=== PATIENT | female | born 1985 | race Caucasian/White ===

== ENCOUNTER → 2018-11-05 | Outpatient (CLI) | payer OTHER, SELFPAY ==
[2018-11-05 10:13] VITALS: BMI 31.0
[2018-11-11 08:47] LABS: HPV APTIMA, High Risk Negative (Negative)
== END | disposition home or self-care (01) ==
LOC: LABSPEC 12:41
PROVIDERS: Family Provider Family Medicine; PCP Family Medicine; Referring Provider Obstetrics & Gynecology; Visit Provider Obstetrics & Gynecology
DX: Z12.4 Encounter for screening for malignant neoplasm of cervix (principal)
CPT/HCPCS: 87624; 88175; G0145

== ENCOUNTER → 2019-12-21 16:57 | Outpatient (CLI) | payer OTHER, SELFPAY ==
[2019-12-21 11:31] VITALS: BMI 31.0
== END ==
PROVIDERS: PCP Family Medicine; Referring Provider Nurse Practitioner Women's Health; Visit Provider Nurse Practitioner Women's Health
DX: R30.0 Dysuria (principal)
CPT/HCPCS: 87086; 87088

== ENCOUNTER 2021-06-29 19:55 | Outpatient (CLI) | payer BC, SELFPAY ==
[2021-06-29 19:56] LABS: Bacteria 0 SEEN /hpf (None Seen); Mucous, Urine 0 SEEN /hpf (<or=2+); Red Blood Cells-Urine 0 SEEN /hpf (0-5); White Blood Cells 0 SEEN /hpf (0-5)
[2021-06-29 20:00] LABS: Color, Urine Yellow (Yellow); Glucose, Dipstick Normal (Normal); Ketone-Dipstick Negative (Negative); Leukocyte Esterase-Dipstick Negative /ul (Negative); Nitrite-Dipstick Negative (Negative); Occult Blood-Urine Negative /ul (Negative); Protein-Dipstick Negative (Negative); Urine Bilirubin Dipstick Negative (Negative); Urine Clarity Clear (Clear); Urine Urobilinogen Normal (Normal)
[2021-06-29 20:19] LABS: Squamous Epithelial Cells - UA 0-5 SEEN /hpf (5-10)
== END 2021-06-29 23:59 | disposition home or self-care (01) ==
PROVIDERS: PCP Family Medicine; Visit Provider Physician Assistant
DX: R30.9 Painful micturition, unspecified (principal)
CPT/HCPCS: 81001; 87086; 87088

== ENCOUNTER → 2021-12-20 | Outpatient (CLI) | payer BC, SELFPAY ==
[2021-12-20 10:28] LABS: Mucous, Urine 0 SEEN /hpf (<or=2+)
[2021-12-20 10:38] LABS: Color, Urine Yellow (Yellow); Glucose, Dipstick Normal (Normal); Ketone-Dipstick Negative (Negative); Leukocyte Esterase-Dipstick 500 /ul (Negative); Nitrite-Dipstick Positive (Negative); Occult Blood-Urine 250 /ul (Negative); Protein-Dipstick Negative (Negative); Specific Gravity, Urine 1.005 (1.002-1.030); Urine Clarity Sl. Cloudy (Clear); Urine Urobilinogen 4 mg/dl (Normal); Urine pH 6.5 (5.0 - 8.0)
[2021-12-20 10:40] LABS: Urine Bilirubin Dipstick 1 mg/dL (Negative)
[2021-12-20 10:54] LABS: Bacteria 1+ /hpf (None Seen); Red Blood Cells-Urine 25-50 SEEN /hpf (0-5); Squamous Epithelial Cells - UA 0-5 SEEN /hpf (5-10); White Blood Cells 25-50 SEEN /hpf (0-5)
== END | disposition home or self-care (01) ==
LOC: LABSPEC 10:18
PROVIDERS: PCP Family Medicine; Referring Provider Physician Assistant; Visit Provider Physician Assistant
DX: N39.0 Urinary tract infection, site not specified (principal); R30.9 Painful micturition, unspecified
CPT/HCPCS: 81001; 87086; 87088

== ENCOUNTER → 2022-09-19 | Outpatient (CLI) | payer BC, SELFPAY | END | disposition home or self-care (01) | LOC: LABSPEC 11:09 | PROVIDERS: PCP Family Medicine; Referring Provider Physician Assistant Surgical; Visit Provider Physician Assistant Surgical | DX: R39.15 Urgency of urination (principal) | CPT/HCPCS: 87086 ==

== ENCOUNTER → 2023-03-18 | Outpatient (CLI) | payer BC, SELFPAY ==
[2023-03-21 15:08] LABS: HPV APTIMA, High Risk Negative (Negative)
== END | disposition home or self-care (01) ==
LOC: LABSPEC 16:38
PROVIDERS: Referring Provider Obstetrics & Gynecology; Visit Provider Obstetrics & Gynecology
DX: Z12.4 Encounter for screening for malignant neoplasm of cervix (principal)
CPT/HCPCS: 87624; 88175; G0145

== ENCOUNTER → 2023-09-05 | Outpatient (CLI) | payer BC, SELFPAY | END | disposition home or self-care (01) | LOC: LABSPEC 12:36 | PROVIDERS: Referring Provider Physician Assistant Surgical; Visit Provider Physician Assistant Surgical | DX: N39.0 Urinary tract infection, site not specified (principal) | CPT/HCPCS: 87077; 87086; 87088; 87186 ==

== ENCOUNTER → 2024-05-06 | Outpatient (CLI) | payer BC, SELFPAY ==
[2024-05-06 10:23] LABS: Vitamin D,25 Hydroxy 38.2 ng/mL
[2024-05-06 11:34] LABS: Cholesterol 189 mg/dL (200); Glucose 84 mg/dL (74-106); High Density Lipoprotein 78 mg/dL; Triglycerides 52 mg/dL; Very Low Density Lipoprotein 10 mg/dL (5-40)
== END | disposition home or self-care (01) ==
LOC: LAB 08:26
PROVIDERS: PCP Family Medicine; Referring Provider Obstetrics & Gynecology; Visit Provider Obstetrics & Gynecology
DX: Z13.21 Encounter for screening for nutritional disorder (principal); Z13.220 Encounter for screening for lipoid disorders; Z13.1 Encounter for screening for diabetes mellitus; Z13.29 Encounter for screening for other suspected endocrine disorder
CPT/HCPCS: 36415; 80061; 82306; 82947; 84443

== ENCOUNTER → 2024-12-04 | Outpatient (CLI) | payer BC, SELFPAY ==
--- NOTE | 2024-12-04 11:36 | RAD_ITS ---
PROCEDURE: ANKLE MIN 3 VIEWS 12/04/2024 REASON FOR EXAM: RIGHT ANKLE EDEMA TECHNIQUE: Procedure Code: RADANK Modality: DX Procedure: ANKLE MIN 3 VIEWS Laterality: Right ankle COMPARISON: None FINDINGS: Bones: No fracture seen. Joints: Normal alignment. Mortise appears intact. No effusion. Soft tissues: Soft tissue swelling. Other: RAD/Ankle min 3 Views IMPRESSION: Soft tissue swelling. No fracture seen. Reading Location: [place] [id number]
== END | disposition home or self-care (01) ==
LOC: MTRAD 11:36
PROVIDERS: PCP Family Medicine; Referring Provider Nurse Practitioner Gerontology; Visit Provider Nurse Practitioner Gerontology
DX: M25.471 Effusion, right ankle (principal)
CPT/HCPCS: 73610

== ENCOUNTER → 2025-01-18 | Outpatient (CLI) | payer BC, SELFPAY ==
--- OUTSIDE RECORDS SUMMARY | 2025-01-18 07:45 | XMS RPT_ITS | CCD ---
Author Organization [facility] CliniSysd Care Team Providers Care Ophthalmic Tech Name Role Phone THIAGO FLACO L Unavailable Unavailable THIAGO, FLACO L Unavailable Unavailable ISAAK CARTER Unavailable Unavail able FARHAT SANON Unavailable Unavailable THIAGO, FLACO L Unavailable Unavailable THIAGO, FLACO L Unavailable Unavailable THIAGO, FLACO L Unavailable Unavailable THIAGO, FLACO L Unavailable Unavailable THIAGO FLACO L Unavailable Unavailable Dr. Sammie Guy Primary Care Provider Dr. Sammie Guy Referring Provider [phone] MICHAEL Burdick Attending Provider [phone] MICHAEL Monique Attending Provider [phone] Dr. Sammie Guy Primary Care Provider [phone] Dr. Sammie Guy Referring Provider [phone] MICHAEL Monique Attending Provider Dr. Sammie Guy Primary Care Provider [phone] Dr. Sammie Guy Referring Provider [phone] MICHAEL Burdick Attending Provider [phone] Dr. Sammie Guy Referring Provider Dr. Maryjo Leigh Attending Provider [phone] Sammie Guy Primary Care Unavailable Delmy Torres NP Attending Unavailable Delmy Torres NP Referring Unavailable Maryjo Leigh Referring Unavailabl e Sammie Guy Primary Care Unavailable Maryjo Leigh Attending Unavailabl e Assessment, Health Risk Attending Unavaila ble Assessment, Health Risk Referring Unavaila ble Brooks, Sammie Primary Care Unavailable Maryjo Leigh Attending Unavailabl e Dr. Sammie Guy DO Primary Care Physician Delmy Dallas Attending Physician [phone] Delmy Dallas Referring Provider [phone] Medications Current Medications Medication Drug Class(es) Dates Sig (Normalized) Sig (Original) [place] (Nk) (2 sources) Start: 04-06-2024 [place] (Nk) A ctive April 06, 2024 1:00am Start: 03-18-2023 [place] (Nk) A ctive March 18, 2023 12:00am Completed/Discontinued Medications Medication Drug Class(es) Dates Sig (Normalized) Sig (Original) ciprofloxacin 500 mg oral tablet (9 sources) Quinolone Antimicrobial Start: 06-29-2021 End: 02-13-2022 take 1 tablet by mouth twice daily Ciprofloxacin Hcl 500 mg tablet Discontinued 500 mg PO TWICE A DAY 14 0 December 20, 2021 8:36am February 13, 2022 9:07am ibuprofen 600 mg oral tablet (5 sources) Nonsteroidal Anti-inflammatory Drug Start: 11-15-2016 End: 11-05-2018 take 1 tablet by mouth every six hours as needed for pain Ibuprofen 600 MG tablet Discontinued 600 mg PO EVERY 6 HOURS as needed for Pain 60 1 November 15, 2016 12:00am November 05, 2018 9:47am nitrofurantoin, macrocrystals 25 mg / nitrofurantoin, monohydrate 75 mg oral capsule (15 sources) Nitrofuran Antibacterial Start: 09-05-2023 End: 09-12-2023 take 1 capsule by mouth every twelve hours at mealtime Nitrofurantoin Monohyd/M-Cryst 100 mg capsule Discontinued 1 NMA PO Q12H 14 7 0 September 05, 2023 12:00am September 11, 2023 12:00am September 12, 2023 12:06am administer with a meal/food; swallow whole; do not open, crush, dissolve , or chew Start: 09-19-2022 End: 09-26-2022 take 1 capsule by mouth every twelve hours at mealtime Nitrofurantoin Monohyd/M-Cryst 100 mg capsule Discontinued 1 NMA PO Q12H 14 7 0 September 19, 2022 12:00am September 25, 2022 12:00am September 26, 2022 12:03am administer with a meal/food; swallow whole; do not open, crush, dissolve , or chew Start: 05-01-2021 End: 05-08-2021 take 1 capsule by mouth every twelve hours at mealtime Nitrofurantoin Monohyd/M-Cryst 100 mg capsule Discontinued 1 NMA PO Q12H 14 7 0 May 01, 2021 1:00am May 07, 2021 1:00am May 08, 2021 1:02am administer with a meal/food; swallow whole; do not open, crush, dissolve , or chew Start: 12-21-2019 End: 12-28-2019 take 1 capsule by mouth twice daily at mealtime Nitrofurantoin Monohyd/M-Cryst (Macrobid) 100 mg capsule Discontinued 100 mg PO TWICE A DAY 14 7 0 December 21, 2019 12:00am December 27, 2019 12:00am December 28, 2019 12:02am must administer with a meal/food phenazopyridine hydrochloride 100 mg oral tablet (3 sources) Start: 09-19-2022 End: 03-18-2023 take 1 tablet by mouth three times daily at mealtime for pain Phenazopyridine (Pyridium) 100 mg tablet Discontinued 100 mg PO THREE TIMES A DAY as needed for pain 7 0 September 19, 2022 12:00am March 18, 2023 9:32am administer with a full glass of water after each meal Vit,Jimy 83-Mdve-Mnkxt 1 TABLET tablet (1 source) Start: 06-21-2013 End: 11-05-2018 Vit,Jimy 46-Zhcr-Zxsff 1 TABLET tablet Discontinued 1 {tbl} PO DAILY June 21, 2013 12:00am November 05, 2018 9:47am Vit,Xvlq79-Oyqs-Fsazn (4 sources) Start: 06-21-2013 End: 11-05-2018 take 1 tablet by mouth once daily Vit,Bjlu45-Zvxa-Waqmw Discontinued 1 TABLET PO DAILY June 21, 2013 7:52pm November 05, 2018 9:47am Start: 06-21-2013 End: 11-05-2018 take 1 tablet by mouth once daily Vit,Tumr71-Aeca-Dbvus Discontinued 1 TABLET PO DAILY June 20, 2013 11:00pm November 05, 2018 8:47am Start: 06-21-2013 End: 11-05-2018 take 1 tablet by mouth once daily Vit,Srtf80-Zrfp-Bunmz Discontinued 1 TABLET PO DAILY June 21, 2013 12:00am November 05, 2018 9:47am Problems Active Problems Problem Classification Problem Date Documented Da te Episodic/Chronic Other non-traumatic joint disorders (1 source) Effusion, right ankle; Translations: [Effusion, right ankle] Onset: 12-21-2024 Episodic Other non-traumatic joint disorders (1 source) Ankle edema; Translations: [Effusion, right ankle] 12-03-2024 Episodic Unclassified (1 source) 36 weeks gestation of ; Translations: [36 weeks gestation of ] Onset: 10-19-2016 Unclassified (1 source) Unknown / UNK(Unknown) Onset: 10-03-2016 Urinary tract infections (19 sources) Urinary tract infectious disease; Translations: [Urinary tract infection, site not specified] Episodic Past or Other Problems Problem Classification Problem Date Documented Da te Episodic/Chronic Normal and/or delivery (1 source) Encounter for supervision of other normal , third trimester; Translations: [Encounter for supervision of other normal , third trimester] Onset: 10-19-2016 Episodic Other screening for suspected conditions (not mental disorders or infectious disease) (4 sources) Encounter for screening for nutritional disorder; Translations: [Encounter for screening for lipoid disorders] Onset: 04-06-2024 Episodic Results Test Name Value Interpretation Reference Range Facility Ankle min 3 Viewson 12-05-19 Ankle min 3 Views [facility] [address] [place] [address] Ankle min 3 Views MR#: [id number] Acct: [id number] Name: SERA KATHLEEN Rep #: [id number] : 1985 F 39 From: Jeramy boyer MD PCP: Dr. Sammie Guy, Status: REG CLI Study: Ankle min 3 Views Date of Exam: 12/04/24 Exam# [id number] Ordering Dr: Delmy Torres AUDIOVISUAL LEAD TECHNICIAN AUDIOVISUAL LEAD TECHNICIAN- C PROCEDURE: ANKLE MIN 3 VIEWS 12/04/2024 REASON FOR EXAM: RIGHT ANKLE EDEMA TECHNIQUE: Procedure Code: RADANK Modality: DX Procedure: ANKLE MIN 3 VIEWS Laterality: Right ankle COMPARISON: None FINDINGS: Bones: No fracture seen. Joints: Normal alignment. Mortise appears intact. No effusion. Soft tissues: Soft tissue swelling. Other: RAD/Ankle min 3 Views IMPRESSION: Soft tissue swelling. No fracture seen. Reading Location: [place] [address] CC: SUSAN Torres; Dr. Sammie Guy DO Lay Out Worker: Signed Normal [facility], Employeeon 05-06-2024 Absolute Lymph 1.58 X10 3/uL Normal 0.83-4.51 [facility] Comment on above: Performed By: #### L 400.0100, L500.2900, L100.0200 #### [facility] [address] [place], [address] Absolute Neut 2.6 X10 3/uL Normal 2.0-7.7 [facility] Comment on above: Performed By: #### L 400.0100, L500.2900, L100.0200 #### [facility] [address] [place], [address] Basophils/100 WBC (Bld) 0.7 % Normal 0-1 [facility] Comment on above: Performed By: #### L 400.0100, L500.2900, L100.0200 #### [facility] [address] [place], [address] Eosinophils/100 WBC (Bld) 0.7 % Normal 0-5 [facility] Comment on above: Performed By: #### L 400.0100, L500.2900, L100.0200 #### [facility] [address] [place], [address] Erythrocyte distribution width (RBC) [Ratio] 12.9 % Normal 11.6-14.6 [facility] Comment on above: Performed By: #### L 400.0100, L500.2900, L100.0200 #### [facility] [address] [place], [address] Hematocrit (Bld) [Volume fraction] 43.4 % Normal 37-47 [facility] Comment on above: Performed By: #### L 400.0100, L500.2900, L100.0200 #### [facility] [address] [place], [address] Hemoglobin (Bld) [Mass/Vol] 14.4 g/dL Normal 12.0-15.0 [facility] Comment on above: Performed By: #### L 400.0100, L500.2900, L100.0200 #### [facility] [address] [place], [address] Lymphocytes/100 WBC (Bld) 35.0 % Normal 19-41 [facility] Comment on above: Performed By: #### L 400.0100, L500.2900, L100.0200 #### [facility] [address] [place], [address] MCH (RBC) [Entitic mass] 30.1 pg Normal 27.0-32.0 [facility] Comment on above: Performed By: #### L 400.0100, L500.2900, L100.0200 #### [facility] [address] [place], [address] MCHC (RBC) [Mass/Vol] 33.2 g/dL Normal 32-36 [facility] Comment on above: Performed By: #### L 400.0100, L500.2900, L100.0200 #### [facility] [address] [place], [address] MCV (RBC) [Entitic vol] 90.6 fL Normal 81-99 [facility] Comment on above: Performed By: #### L 400.0100, L500.2900, L100.0200 #### [facility] [address] [place], [address] Monocytes/100 WBC (Bld) 7.1 % Normal 0-10 [facility] Comment on above: Performed By: #### L 400.0100, L500.2900, L100.0200 #### [facility] [address] [place], [address] Neutrophils/100 WBC (Bld) 56.5 % Normal 47-70 [facility] Comment on above: Performed By: #### L 400.0100, L500.2900, L100.0200 #### [facility] [address] [place], [address] NRBC # 0.00 10 3/uL Normal 0-5 [facility] Comment on above: Performed By: #### L 400.0100, L500.2900, L100.0200 #### [facility] [address] [place], [address] Nucleated RBC (Bld) [#/Vol] 0 10*3/uL Normal 0-5 [facility] Comment on above: Performed By: #### L 400.0100, L500.2900, L100.0200 #### [facility] [address] [place], [address] Platelet mean volume (Bld) [Entitic vol] 10.4 fL Normal 6.2-12.0 [facility] Comment on above: Performed By: #### L 400.0100, L500.2900, L100.0200 #### [facility] [address] [place], [address] Platelets (Bld) [#/Vol] 188 10*3/uL Normal 150-450 [facility] Comment on above: Performed By: #### L 400.0100, L500.2900, L100.0200 #### [facility] [address] [place], [address] RBC (Bld) [#/Vol] 4.79 10*6/uL Normal 4.2-5.4 [facility] Comment on above: Performed By: #### L 400.0100, L500.2900, L100.0200 #### [facility] [address] [place], [address] RDW SD 42.3 fl Normal 35.1-43.9 [facility] Comment on above: Performed By: #### L 400.0100, L500.2900, L100.0200 #### [facility] [address] [place], [address] WBC (Bld) [#/Vol] 4.5 10*3/uL Normal 4.4-11.0 [facility] Comment on above: Performed By: #### L 400.0100, L500.2900, L100.0200 #### [facility] [address] [place], [address] Employee Profileon 5 Albumin [Mass/Vol] 3.8 g/dL Normal 3.2-5.0 [facility] Comment on above: Performed By: #### L 400.0100, L500.2900, L100.0200 #### [facility] [address] [place], [address] Albumin/Globulin [Mass ratio] 1.0 {ratio} Normal 0.9-2.4 [facility] Comment on above: Performed By: #### L 400.0100, L500.2900, L100.0200 #### [facility] [address] [place], [address] ALK P 49 U/L Normal 45-117 [facility] Comment on above: Performed By: #### L 400.0100, L500.2900, L100.0200 #### [facility] [address] [place], [address] ALT [Catalytic activity/Vol] 23 U/L Normal 13-56 [facility] Comment on above: Performed By: #### L 400.0100, L500.2900, L100.0200 #### [facility] [address] [place], [address] AST [Catalytic activity/Vol] 13 U/L Low 15-37 [facility] Comment on above: Performed By: #### L 400.0100, L500.2900, L100.0200 #### [facility] [address] [place], [address] Bilirubin [Mass/Vol] 0.50 mg/dL Normal 0.20-1.00 [facility] Comment on above: Result Comment: For patients on eltrombopag therapy, use of Dimension [place] TBIL is not recommended. Performed By: #### L 400.0100, L500.2900, L100.0200 #### [facility] [address] [place], [address] Bilirubin.direct [Mass/Vol] 0.11 mg/dL Normal 0.00-0.30 [facility] Comment on above: Performed By: #### L 400.0100, L500.2900, L100.0200 #### [facility] [address] [place], [address] BUN/CRE 18.7 RATIO Normal 10-20 [facility] Comment on above: Performed By: #### L 400.0100, L500.2900, L100.0200 #### [facility] [address] [place], [address] CA,Total 8.8 mg/dL Normal 8.5-10.1 [facility] Comment on above: Performed By: #### L 400.0100, L500.2900, L100.0200 #### [facility] [address] [place], [address] Chloride [Moles/Vol] 106 mmol/L Normal 98-107 [facility] Comment on above: Performed By: #### L 400.0100, L500.2900, L100.0200 #### [facility] [address] [place], [address] CHOL:HDL 2.40 Normal [facility] Comment on above: Performed By: #### L 400.0100, L500.2900, L100.0200 #### [facility] [address] [place], [address] Cholesterol [Mass/Vol] 188 mg/dL Normal 200 [facility] Comment on above: Result Comment: <200 mg/dL Desirable 200-240 mg/dL Borderline >240 mg/dL High Risk Performed By: #### L 400.0100, L500.2900, L100.0200 #### [facility] [address] [place], [address] Cholesterol in HDL [Mass/Vol] 78 mg/dL Normal [facility] Comment on above: Result Comment: The drugs N-Acetylcysteine and Metamizole may falsely depress this assay. Reference Range HDL <40 mg/dL Low HDL Cholesterol HDL >or= 60 mg/dL High HDL Cholesterol Performed By: #### L 400.0100, L500.2900, L100.0200 #### [facility] [address] [place], [address] Cholesterol in LDL [Mass/Vol] 101 mg/dL Normal 0-130 [facility] Comment on above: Performed By: #### L 400.0100, L500.2900, L100.0200 #### [facility] [address] [place], [address] Cholesterol in VLDL [Mass/Vol] 9 mg/dL Normal 5-40 [facility] Comment on above: Performed By: #### L 400.0100, L500.2900, L100.0200 #### [facility] [address] [place], [address] CO2 [Moles/Vol] 24.0 mmol/L Normal 21.0-32.0 [facility] Comment on above: Performed By: #### L 400.0100, L500.2900, L100.0200 #### [facility] [address] [place], [address] Creatinine [Mass/Vol] 0.86 mg/dL Normal 0.55-1.02 [facility] Comment on above: Result Comment: The validity of the calculated GFR GFRAA in patients over 70 years has not been determined. Clinical correlation is essential. Performed By: #### L 400.0100, L500.2900, L100.0200 #### [facility] [address] [place], [address] EST GFR - AA 95 mL/min Normal >60 [facility] Comment on above: Result Comment: Afri can [place] GFR Calc Performed By: #### L 400.0100, L500.2900, L100.0200 #### [facility] [address] [place], [address] GAP 6 Normal 5-15 [facility] Comment on above: Performed By: #### L 400.0100, L500.2900, L100.0200 #### [facility] [address] [place], [address] GFR/1.73 sq M.predicted among non-blacks MDRD (S/P/Bld) [Vol rate/Area] 79 mL/min/{1.73_m2} Normal >60 [facility] Comment on above: Result Comment: Non- GFR Calc Performed By: #### L 400.0100, L500.2900, L100.0200 #### [facility] [address] [place], [address] Globulin (S) [Mass/Vol] 3.9 g/dL Normal 2.2-4.2 [facility] Comment on above: Performed By: #### L 400.0100, L500.2900, L100.0200 #### [facility] [address] [place], [address] Glucose [Mass/Vol] 87 mg/dL Normal 74-106 [facility] Comment on above: Performed By: #### L 400.0100, L500.2900, L100.0200 #### [facility] [address] [place], [address] LDH 161 U/L Normal 84-246 [facility] Comment on above: Performed By: #### L 400.0100, L500.2900, L100.0200 #### [facility] [address] [place], [address] Phosphate [Mass/Vol] 3.6 mg/dL Normal 2.5-4.9 [facility] Comment on above: Performed By: #### L 400.0100, L500.2900, L100.0200 #### [facility] [address] [place], [address] Potassium [Moles/Vol] 4.3 mmol/L Normal 3.5-5.1 [facility] Comment on above: Performed By: #### L 400.0100, L500.2900, L100.0200 #### [facility] [address] [place], [address] Sodium [Moles/Vol] 136 mmol/L Normal 136-145 [facility] Comment on above: Performed By: #### L 400.0100, L500.2900, L100.0200 #### [facility] [address] [place], [address] T PROT 7.7 g/dL Normal 6.4-8.2 [facility] Comment on above: Performed By: #### L 400.0100, L500.2900, L100.0200 #### [facility] [address] [place], [address] Triglyceride [Mass/Vol] 47 mg/dL Normal [facility] Comment on above: Result Comment: The drugs N-Acetylcysteine and Metamizole may falsely depress this assay. Serum Triglycerides Reference Interval Normal <150 mg/dL Borderline high 150 - 199 mg/dL High 200 - 499 mg/dL Very High > or = 500 mg/dL Performed By: #### L 400.0100, L500.2900, L100.0200 #### [facility] [address] [place], [address] Urea nitrogen [Mass/Vol] 16 mg/dL Normal 7-18 [facility] Comment on above: Performed By: #### L 400.0100, L500.2900, L100.0200 #### [facility] [address] [place], [address] URIC 2.9 mg/dL Normal 2.6-6.0 [facility] Comment on above: Result Comment: The drugs N-Acetylcysteine and Metamizole may falsely depress this assay. Performed By: #### L 400.0100, L500.2900, L100.0200 #### [facility] [address] [place], [address] Glucoseon 05-06-2024 Glucose [Mass/Vol] 84 mg/dL Normal 74-106 [facility] Comment on above: Performed By: #### L 506.1000, L501.0100, L501.9520, L500.4100 #### [facility] [address] [place], [address] Lipid Profileon 05-06-2024 Cholesterol [Mass/Vol] 189 mg/dL Normal 200 [facility] Comment on above: Result Comment: <200 mg/dL Desirable 200-240 mg/dL Borderline >240 mg/dL High Risk Performed By: #### L 506.1000, L501.0100, L501.9520, L500.4100 #### [facility] [address] [place], [address] Cholesterol in HDL [Mass/Vol] 78 mg/dL Normal [facility] Comment on above: Result Comment: The drugs N-Acetylcysteine and Metamizole may falsely depress this assay. Reference Range HDL <40 mg/dL Low HDL Cholesterol HDL >or= 60 mg/dL High HDL Cholesterol Performed By: #### L 506.1000, L501.0100, L501.9520, L500.4100 #### [facility] [address] [place], [address] Cholesterol in LDL [Mass/Vol] 101 mg/dL Normal 0-130 [facility] Comment on above: Performed By: #### L 506.1000, L501.0100, L501.9520, L500.4100 #### [facility] [address] [place], [address] Cholesterol in VLDL [Mass/Vol] 10 mg/dL Normal 5-40 [facility] Comment on above: Performed By: #### L 506.1000, L501.0100, L501.9520, L500.4100 #### [facility] [address] [place], [address] Triglyceride [Mass/Vol] 52 mg/dL Normal [facility] Comment on above: Result Comment: The drugs N-Acetylcysteine and Metamizole may falsely depress this assay. Serum Triglycerides Reference Interval Normal <150 mg/dL Borderline high 150 - 199 mg/dL High 200 - 499 mg/dL Very High > or = 500 mg/dL Performed By: #### L 506.1000, L501.0100, L501.9520, L500.4100 #### [facility] [address] [place], [address] Thyroid Stim Hormone (TSH)on 05-06-2024 TSH 1.870 uIU/mL Normal 0.358-3.740 [facility] Comment on above: Performed By: #### L 506.1000, L501.0100, L501.9520, L500.4100 #### [facility] [address] [place], [address] Urinalysis, Employeeon 05-06 BILIRUBIN URINE Negative Normal Negative [facility] Comment on above: Order Comment: Urine , Random Performed By: #### L 400.0100, L500.2900, L100.0200 #### [facility] [address] [place], [address] Clarity (U) Clear Normal Clear [facility] Comment on above: Order Comment: Urine , Random Performed By: #### L 400.0100, L500.2900, L100.0200 #### [facility] [address] [place], [address] Color (U) Straw Normal Yellow [facility] Comment on above: Order Comment: Urine , Random Performed By: #### L 400.0100, L500.2900, L100.0200 #### [facility] [address] [place], [address] GLUCOSE, UR Normal Normal Normal [facility] Comment on above: Order Comment: Urine , Random Performed By: #### L 400.0100, L500.2900, L100.0200 #### [facility] [address] [place], [address] KETONE UR Negative Normal Negative [facility] Comment on above: Order Comment: Urine , Random Performed By: #### L 400.0100, L500.2900, L100.0200 #### [facility] [address] [place], [address] LEUK ESTERASE Negative Normal Negative [facility] Comment on above: Order Comment: Urine , Random Performed By: #### L 400.0100, L500.2900, L100.0200 #### [facility] [address] [place], [address] Nitrite Ql (U) Negative Normal Negative [facility] Comment on above: Order Comment: Urine , Random Performed By: #### L 400.0100, L500.2900, L100.0200 #### [facility] [address] [place], [address] OCCULT BLOOD-UR Negative Normal Negative [facility] Comment on above: Order Comment: Urine , Random Performed By: #### L 400.0100, L500.2900, L100.0200 #### [facility] [address] [place], [address] pH UR 6.0 Normal 5.0 - 8.0 [facility] Comment on above: Order Comment: Urine , Random Performed By: #### L 400.0100, L500.2900, L100.0200 #### [facility] [address] [place], [address] PROT DIPSTX Negative Normal Negative [facility] Comment on above: Order Comment: Urine , Random Performed By: #### L 400.0100, L500.2900, L100.0200 #### [facility] [address] [place], [address] SP.GR. DIPSTX 1.010 Normal 1.002-1.030 [facility] Comment on above: Order Comment: Urine , Random Performed By: #### L 400.0100, L500.2900, L100.0200 #### [facility] [address] [place], [address] UROBILI Normal Normal Normal [facility] Comment on above: Order Comment: Urine , Random Performed By: #### L 400.0100, L500.2900, L100.0200 #### [facility] [address] [place], [address] Vitamin D,25 Hydroxyon 05-06 Vitamin D 25-OH 38.2 ng/mL Normal [facility] Comment on above: Result Comment: Donna min D 25(OH) Status Range Deficiency <20 ng/mL (50nmol/L) Insufficiency 20 - 30 ng/mL (50 - 75 nmol/L) Sufficiency 30 - 100 ng/mL (75 - 250 nmol/L) Toxicity >100 ng/mL (>250 nmol/L) Performed By: #### L 506.1000, L501.0100, L501.9520, L500.4100 #### [facility] [address] [place], [address] Doctor Assistant Office Visit Reporton 04-06-2024 Doctor Assistant Office Visit Report [facility] [address], [address] [place] [address] OFFICE VISIT Date of Service: 04/06/24 MR#: [id number] Acct: [id number] Name: SERA KATHLEEN Rep #: [id number] : 1985 Provider: Dr. 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 Is patient in pain?: No Allergies No Known Allergies Allergy (Verified 04/06/24 08:03) Medications ???Medication ???Instructions ???Recorded ???Confirmed ???Type NK 04/06/24 04/06/24 History Post menopausal: No Patient : No : No PFSH Medical History Urinary tract infection with hematuria Urinary tract infection Kidney infection Surgical History [place] teeth extracted Family History Grandmother Rheumatoid arthritis Breast cancer Heart disease Grandfather Cancer leukemia Social History (Updated 04/06/24 @ 08:08 by Stella Quevedo) Smoking Status: Never smoker alcohol intake: current details: social substance use type: does not use caffeine: Yes what type of physical activity do you participate in: running frequency: 3-4 times per week seatbelt use: always do you feel safe at home: Yes additional social history: nvite Patient works at [employer] Oncology History Elective abortions Hx Para 4 Spontaneous abortions Hx # Term Pregnancies Ectopic pregnancies Hx # Pregnancies Multiple births # of living children Past Pregnancies Del. Date Name GA/Weeks Outcome Route Bth Weight Infant Gen Labor Lgth Anesthesia Del Locatn Provider FOB Unknown 2008 Corby live - full term Unknown 2010 Jo live - full term Unknown 2013 Annette live - full term Unknown 2016 Valentín live - full term HPI Encounter for routine gynecological examination Details: SERA KATHLEEN is a 39 year old who presents for annual exam. Last PAP: 03/18/2023 History of abnormal PAP: no Last mammogram: n/a History of abnormal mammogram: n/a Colon cancer screening: start age 45 Other preventative health care screenings: followed by pcp contraception: vasectomy Female Reproductive History Cycle Length: 21-35 Bleeding Duration: 5 Questions: metorrhagia: No, sexually active: Yes, dyspareunia: No and PCB: No Menopausal Symptoms: No hot flashes, No night sweats, No weight change, No mood changes, No difficulty concentrating, No sleep problems and No change in libido ROS Const Constitutional: Reports as per HPI; Denies fatigue, increased appetite, poor appetite, night sweats, weight gain or weight loss Cardio Card: Denies chest pain Resp Resp: Denies cough or dyspnea GI GI: Reports as per HPI; Denies abdominal pain, bloating, constipation, nausea or vomiting : Reports as per HPI and other; Denies difficulty voiding, dysuria, hematuria, hot flashes, nipple discharge, pelvic pain, prolapse symptoms, urinary frequency, urinary incontinence, urinary urgency, vaginal discharge, vaginal dryness, vaginal odor or vaginal pruritus Skin Skin/Breast: Denies changing lesions, breast mass, breast pain, breast skin changes or nipple discharge Psych Psych: Denies anxiety, change in libido, depression or difficulty concentrating Exam Const General: cooperative, healthy appearing, comfortable, no acute distress, well developed and well groomed HENCA Head: normal to inspection and normocephalic Ears: hearing grossly normal bilaterally and external ears normal Nose: external nose normal Face and sinus: normal facial exam Neck Neck: normal visual inspection, full ROM and no lymphadenopathy Thyroid: thyroid normal Chest Chest palpation inspection: normal inspection of the chest Breast inspection: normal inspection of the breasts and normal inspection of the axillae Breast palpation: normal palpation of the breasts, normal palpation of the axillae and no axillary lymphadenopathy Resp Effort Inspection: normal respiratory effort GI Inspection: normal to inspection and non-distended Palpation: soft, no hepatosplenomegaly and no guarding General: bladder normal to palpation External Female Exam: normal external appearance, normal appearance of the urethra and no lesions Urethra: normal appearance of the urethra and normal palpation Speculum Exam - Vagina: normal appearance of the vagina and normal vaginal discharge Speculum E (more content not included)... Normal [place] Culture, urineOrdered By: Zonia Liu on 09-21-2022 Bacteria identified Cx Nom (U) Culture exhibits no growth. [facility] - Chemistry and C hemistry - challengeon 09-19-2022 HCG ( test) Ql (U) Negative [place] Basophil percentageon 2021 Basophil percentage 25-50 SEEN /hpf 0-5 [place] Work Phone: Bilirubin Test strip Ql (U)o n 12-20-2021 Bilirubin Ql (U) 1 mg/dL Negative [place] Work Phone: Comment on above: COLOR OF URINE MAY A FFECT DIPSTICK RESULTS. Ketones Test strip Ql (U)on 12-20-2021 Ketones Ql (U) Negative Negative [place] Work Phone: Laboratory - Chemistry and C hemistry - challengeon 12-20-2021 HCG ( test) Ql (U) Negative [place] Work Phone: Bilirubin Ql (U) Negative [place] Work Phone: Glucose Ql (U) Negative [place] Work Phone: Ketones Ql (U) Trace (5) [place] Work Phone: pH (U) 6.0 [pH] [place] Work Phone: Specific gravity (U) [Rel density] 1.010 [place] Work Phone: Urobilinogen (U) [Mass/Vol] Negative [place] Work Phone: Laboratory - Hematology and Cell countson 12-20-2021 Hemoglobin Ql (U) Hemolyzed [place] Work Phone: Laboratory - Specimen inform ationon 12-20-2021 Clarity (U) Cloudy [place] Work Phone: Color (U) ORANGE [place] Work Phone: Laboratory - Urinalysison Nitrite Ql (U) Negative [place] Work Phone: Protein Ql (U) Negative [place] Work Phone: Mucus LM Ql (Urine sed)on Mucus Ql (Urine sed) 0 SEEN /hpf [place] Work Phone: Nitrite Test strip Ql (U)on 12-20-2021 Nitrite Ql (U) Positive Negative [place] Work Phone: No Panel Informationon 12-20 Urine Leukocytes Positive [place] Work Phone: Urine Non-Hemolyzed Blood Large [place] Work Phone: Protein Test strip Ql (U)on 12-20-2021 Protein Ql (U) Negative Negative [place] Work Phone: Squamous epithelial cells de tection in urine sediment by light microscopyon 12-20-2021 Epithelial cells.squamous LM Ql (Urine sed) 0-5 SEEN /hpf 5-10 [place] Work Phone: Urine blood detectionon 12-01 RBC Ql (U) 250 /ul Negative [place] Work Phone: RBC Ql (U) 25-50 SEEN /hpf 0-5 [place] Work Phone: Urine clarityon 12-20-2021 Clarity (U) Sl. Cloudy Clear [place] Work Phone: Urine color determinationon 12-20-2021 Color (U) Yellow Yellow [place] Work Phone: Urine glucose detectionon Glucose Ql (U) Normal mg/dl Normal [place] Work Phone: Urine leukocyte esterase det ection by dipstickon 12-20-2021 Leukocyte esterase Test strip Ql (U) 500 /ul Negative [place] Work Phone: Urine pHon 12-20-2021 pH (U) 6.5 [pH] 5.0 - 8.0 [place] Work Phone: Urine sediment bacteria coun t by microscopy (number/high power field)on 12-20-2021 Bacteria LM.HPF (Urine sed) [#/Area] 1 /[HPF] None Seen [place] Work Phone: Urine specific gravity measu rementon 12-20-2021 Specific gravity (U) [Rel density] 1.005 1.002-1.030 [place] Work Phone: Urobilinogen Auto test strip Ql (U)on 12-20-2021 Urobilinogen Ql (U) 4 mg/dl Normal [facility] Work Phone: Basophil percentageon 2021 Basophil percentage 0 SEEN /hpf [facility] Work Phone: Culture, urineon 06-29-2021 Bacteria identified Cx Nom (U) Positive [place] Work Phone: Ketones Test strip Ql (U)on 06-29-2021 Ketones Ql (U) Negative Negative [place] Work Phone: Laboratory - Chemistry and C hemistry - challengeon 06-29-2021 HCG ( test) Ql (U) Negative [place] Work Phone: Glucose Ql (U) Negative [place] Work Phone: Ketones Ql (U) Trace (5) [place] Work Phone: pH (U) 7.5 [pH] [place] Work Phone: Specific gravity (U) [Rel density] <1.005 [place] Work Phone: Urobilinogen (U) [Mass/Vol] Negative [place] Work Phone: Laboratory - Hematology and Cell countson 06-29-2021 Hemoglobin Ql (U) Negative [place] Work Phone: Mucus LM Ql (Urine sed)on Mucus Ql (Urine sed) 0 SEEN /hpf [place] Work Phone: Nitrite ur dipstickon 2021 Nitrite Ql (U) Negative [place] Work Phone: No Panel Informationon 06-29 Urine Leukocytes Positive [place] Work Phone: Urine Non-Hemolyzed Blood Negative [place] Work Phone: Squamous epithelial cells de tection in urine sediment by light microscopyon 06-29-2021 Epithelial cells.squamous LM Ql (Urine sed) 0-5 SEEN /hpf [place] Work Phone: Urine blood detectionon 06-01 RBC Ql (U) Negative Negative [place] Work Phone: RBC Ql (U) 0 SEEN /hpf [place] Work Phone: Urine clarityon 06-29-2021 Clarity (U) Clear [place] Work Phone: Urine color determinationon 06-29-2021 Color (U) Yellow [place] Work Phone: Urine glucose detectionon Glucose Ql (U) Normal mg/dl Normal [place] Work Phone: Urine leukocyte esterase det ection by dipstickon 06-29-2021 Leukocyte esterase Test strip Ql (U) Negative Negative [place] Work Phone: Urine pHon 06-29-2021 pH (U) 7.0 [pH] [place] Work Phone: Urine protein assay by test strip, semi-quantitativeon 06-29-2021 Protein Ql (U) Negative [place] Work Phone: Urine sediment bacteria coun t by microscopy (number/high power field)on 06-29-2021 Bacteria LM.HPF (Urine sed) [#/Area] 0 /[HPF] None Seen [place] Work Phone: Urine specific gravity measu rementon 06-29-2021 Specific gravity (U) [Rel density] 1.010 [place] Work Phone: Urine total bilirubin detect ion by test stripon 06-29-2021 Bilirubin Ql (U) Negative [place] Work Phone: Urobilinogen Auto test strip Ql (U)on 06-29-2021 Urobilinogen Ql (U) Normal mg/dl Normal [facility] Work Phone: HOSPon 12-27-2016 HOSP Office Vi sit (JACQUELINE) [facility][id number][facility] 1985 [facility] Department12/27/16 10:30 AM FLACO DAS During your visit today, we recorded the following information about you: Blood pressure Weight 134/86 79.4 kgRebecheath Das MD 12/27/2016 10:24 AM SignedPOSTPARTUM VISITEmmery Kathleen is a 31 year old year old here for visit.Delivery Summary:SVDPostpartum Recovery:Feeding: Breast feedingBreastfeeding problems: NoneMenses since delivery: Not resumedMenstrual pattern prior to : Regular periodsIntercourse since delivery: Not resumedDepression: denies symptoms of depression. See depression screeningtab.Emotional support: Yes,Bowel symptoms: Negative for abdominal discomfort, blood in stools or blackstools and change in bowel habitsBladder symptoms: No dysuria, gross hematuria, urinary frequency, urinaryurgency, or incontinenceOther issues: NoneLast Pap: 2017 normal HPV: negativePAST MEDICAL HISTORYDiagnosis Date- Complication of anesthesia Epidurals do not work well for patient, tried replacement- Kidney infection 2006PAST SURGICAL HISTORYProcedure Laterality Date- PAST SURGICAL HISTORY OF WISDOM TEETHFAMILY HISTORYProblem Relation Age of Onset- Arthritis Maternal Grandmother RHEUMATOID- Breast Cancer Maternal Grandmother- Cancer Maternal Grandfather Leukemia- Heart Paternal Grandmother- Lipids Paternal GrandmotherSOCIAL HISTORY Social History Marital status: Spouse name: DOMINIC Years of education: 16 Number of children: 3Occupational HistoryOccupation Employer Comment [employer] N[employer]SE [employer] Gallegos*Social History Main Topics Smoking status: Never Smoker Smokeless status: Never Used Alcohol use: Yes Comment: OCCASIONALLY, BUT NOW WHILE Drug use: No Sexual activity: Yes Partners with: MalePHYSICAL EXAMINATION:There were no vitals taken for this visit.GENERAL: pleasant, female in no apparent distressHEENT: Normocephalic, atraumatic, mucus membranes moist and no lesionsNECK: Supple, full range of motion, no adenopathy and thyroid normalDERMATOLOGY: Normal, without lesions, non-icteric and non-hirsuteBREAST: soft, non-tender, symmetric, no dominant mass, normal nipple-areolarcomplex, no lymphadenopathy and no nipple dischargeCHEST: Normal inspiratory effortABDOMEN: soft, non-tender and no masses. No incisional redness, swelling, ordrainage.PELVIC: external genitalia normal, normal Bartholin's glands, urethra, [place]'sglands, no vulvar lesions, no cervical lesions, good vaginal support,physiologic discharge present, normal appearing perineal body and perianalregionBIMANUAL: uterus normal size, shape and consistency, no adnexal masses andnon-tenderNEURO: alert and oriented x3,exam grossly non-focalEXTREMITIES: normalASSESSMENT AND PLAN:31 year old status post with normal course.Contraception plan: vasectomyFollow up: RTC for annual exams and PRNRebAPRRISH Coronaefprisca Provider: FLACO DAS [[id number]]Allergies As of Date: 12/27/2016(No Known Allergies)Date Reviewed: 12/27/2016Reviewed by: Nayeli Hawley Ma - Fully AssessedReason for Visit: Care [85] Cmt: 6 weeksPrimary Visit Diagnosis: care and examination [Z39.2]Prescriptions as of 12/27/2016 Sig: ORAL Take by mouth. With DHA CALCIUM CARBONATE 200 MG CALC* Take 500 mg by mouth as neede* VITAMIN B-6 ORAL Take by mouth. CEPHALEXIN 500 MG CAPSULE Take 1 capsule by mouth twice* HYDROCORTISONE 2.5 % TOPICAL * Apply 1 application to affect* OMEGA-3 FATTY ACIDS 500 MG CA* Take 1,200 mg by mouth once d*Medication notes this encounter CALCIUM CARBONATE 200 MG CALCIUM (500 MG) CHEWABLE TABLET >> Nayeli Hawley Ma 12/27/2016 9:57 AM >> NAYELI HAWLEY MA [facility] Dec 27, 2016 9:57 AM No longer taking OMEGA-3 FATTY ACIDS 500 MG CAPSULE >> Nayeli Hawley Ma 12/27/2016 9:57 AM >> NAYELI HAWLEY MA [facility] Dec 27, 2016 9:57 AM No longer takingProblem List As Of Date 12/27/2016 Noted Resolved Supervision of Normal First [Z34.00] INVALID FOR*03/01/2009 Supervision of other normal [Z34.80] INVALID FOR*08/20/2012 Threatened [O20.0] INVALID FOR*04/08/2013 History of miscarriage, currently [O09*INVALID FOR*08/07/2013 More... Nausea and vomiting in [O21.9] INVALID FOR*08/07/2013 More... Rapid first stage of labor [O62.3] INVALID FOR*08/07/2013 More... Encounter for supervision of other normal pregn*INVALID FOR*12/27/2016 More... Group B Streptococcus carrier, +RV culture, cur*INVALID FOR*08/07/2013 Nausea/vomiting in [O21.9] INVALID FOR*09/05/2016 More... control counseling [Z30.09] INVALID FOR*12/27/2016 More...Disposition: Return in about 1 year (around 12/27/2017).Follow-up and Disposition History RecordedEncounter Number: [id number] Status:Closed by FLACO DAS MD on 12/27/16 Normal [facility] PROGRESSon 12-27-2016 PROGRESS HNO ID: [id number] thor: Flaco DasService: (none)Author Type: PhysicianType: Progress NotesFiled: 12/27/2016 10:24 AMNote Text: VISITEmmery Kathleen is a 31 year old year old here for visit.Delivery Summary:SVDPostpartum Recovery:Feeding: Breast feedingBreastfeeding problems: NoneMenses since delivery: Not resumedMenstrual pattern prior to : Regular periodsIntercourse since delivery: Not resumedDepression: denies symptoms of depression. See depressionscreening tab.Emotional support: Yes,Bowel symptoms: Negative for abdominal discomfort, blood in stools orblack stools and change in bowel habitsBladder symptoms: No dysuria, gross hematuria, urinary frequency, urinaryurgency, or incontinenceOther issues: NoneLast Pap: 2017 normal HPV: negativePAST MEDICAL HISTORYDiagnosis Date- Complication of anesthesia Epidurals do not work well for patient, tried replacement- Kidney infection 2006PAST SURGICAL HISTORYProcedure Laterality Date- PAST SURGICAL HISTORY OF WISDOM TEETHFAMILY HISTORYProblem Relation Age of Onset- Arthritis Maternal Grandmother RHEUMATOID- Breast Cancer Maternal Grandmother- Cancer Maternal Grandfather Leukemia- Heart Paternal Grandmother- Lipids Paternal GrandmotherSOCIAL HISTORY Social History Marital status: Spouse name: DOMINIC Years of education: 16 Number of children: 3Occupational HistoryOccupation Employer Comment [employer]SE [employer]*Social History Main Topics Smoking status: Never Smoker Smokeless status: Never Used Alcohol use: Yes Comment: OCCASIONALLY, BUT NOW WHILE Drug use: No Sexual activity: Yes Partners with: MalePHYSICAL EXAMINATION:There were no vitals taken for this visit.GENERAL: pleasant, female in no apparent distressHEENT: Normocephalic, atraumatic, mucus membranes moist and no lesionsNECK: Supple, full range of motion, no adenopathy and thyroid normalDERMATOLOGY: Normal, without lesions, non-icteric and non-hirsuteBREAST: soft, non-tender, symmetric, no dominant mass, normalnipple-areolar complex, no lymphadenopathy and no nipple dischargeCHEST: Normal inspiratory effortABDOMEN: soft, non-tender and no masses. No incisional redness, swelling,or drainage.PELVIC: external genitalia normal, normal Bartholin's glands, urethra,[place]'s glands, no vulvar lesions, no cervical lesions, good vaginalsupport, physiologic discharge present, normal appearing perineal body andperianal regionBIMANUAL: uterus normal size, shape and consistency, no adnexal masses andnon-tenderNEURO: alert and oriented x3,exam grossly non-focalEXTREMITIES: normalASSESSMENT AND PLAN:31 year old status post with normal course.Contraception plan: vasectomyFollow up: RTC for annual exams and [facility] ([facility] SERA KATHLEEN ([id number]) 1985 [facility] Time Provider Department11/14/16 FLACO DAS During your visit today, we recorded the following information about you:Hunter Polo LPN 11/14/2016 3:48 PM SignedPt delivered via at [facility] on 11/14/[address] Das. See OB Outcome note.Hunter Polo LPNAllergies As of Date: 11/14/2016(No Known Allergies)Date Reviewed: 11/12/2016Reviewed by: Nayeli Hawley Ma - Fully AssessedPrescriptions as of 11/14/2016 Sig: CALCIUM CARBONATE 200 MG CALC* Take 500 mg by mouth as neede* VITAMIN B-6 ORAL Take by mouth. CEPHALEXIN 500 MG CAPSULE Take 1 capsule by mouth twice* HYDROCORTISONE 2.5 % TOPICAL * Apply 1 application to affect* ORAL Take by mouth. OMEGA-3 FATTY ACIDS 500 MG CA* Take 1,200 mg by mouth once d*Problem List As Of Date 11/14/2016 Noted Resolved Supervision of Normal First [Z34.00] INVALID FOR*03/01/2009 Supervision of other normal [Z34.80] INVALID FOR*08/20/2012 Threatened [O20.0] INVALID FOR*04/08/2013 History of miscarriage, currently [O09*INVALID FOR*08/07/2013 More... Nausea and vomiting in [O21.9] INVALID FOR*08/07/2013 More... Rapid first stage of labor [O62.3] INVALID FOR*08/07/2013 More... Encounter for supervision of other normal pregn*INVALID FOR* More... Group B Streptococcus carrier, +RV culture, cur*INVALID FOR*08/07/2013 Nausea/vomiting in [O21.9] INVALID FOR*09/05/2016 More... control counseling [Z30.09] INVALID FOR* More... Status:Closed by HUNTER POLO LPN on 11/14/16 [facility] PROGRESSon 11-14-2016 PROGRESS HNO ID: [id number] Author: Hunter Polo LPN Service: (none) Author Type: (none) Type: Progress Notes Filed: 11/14/2016 3:48 PM Note Text: Pt delivered via at [facility] on 11/14/[address] Das. See OB Outcome note. Hunter Polo LPN [facility] HOSPon 11-12-2016 HOSP Routine Off ice Visit (WOOB) SERA KATHLEEN ([id number]) 1985 FDate Time Provider Department11/12/16 4:30 PM FLACO DAS During your visit today, we recorded the following information about you: Blood pressure Weight 118/66 86.6 kgTabatha Marleen Or 11/12/2016 4:18 PM SignedSEQUENTIAL SCREENINGSThe [facility] offers sequential screenings for women who are interestedin screenings for chromosomal abnormalities and certain defects during apregnancy. The sequential screen combines ultrasound and blood tests todetermine the risk of chromosomal abnormalities, including Down's Syndrome(Trisomy 21) and Trisomy 18, as well as open neural tube defects includingspina bifida. Ultrasound examination is performed between 11 weeks and 13 weeksgestational age. Blood tests are drawn after the ultrasound and again later inthe between 15 and 21 weeks gestational age. Please let yourphysician know if you are interested in this testing. It will require anappointment with our fuel conversion technician. This is not an ultrasound performedby a physician in our office during a routine visit.SIGNS AND SYMPTOMS OF LABOR1. Contractions every 10 minutes or more often2. Clear, pink, or brownish fluid (water) leaking from vagina3. Feeling that baby is pushing down, pressure4. Low, dull backache5. Cramps that feel like a period6. Cramps with or without diarrheaIf you notice any of the above symptoms, contact our office at [phone] andask to speak with a nurse.After hours, you can call doctors registry at [phone] OR call [facility] at [phone] and ask to have the doctor show operations supervisor paged.If you consider this an emergency, dial 9-8 or go to your nearest emergencydepartment.NEED HELP? Are you dealing with a violent or abusive relationship? Are you avictim of rape or sexual assult? Call [facility] ([place]) 24 hourCrisis Hotline: 932.590.5177 or 084-408-7169. MANUALYour Guide to a Healthy manual is now on-line. [facility]/ HealthyPregnancyGuide to download your free copyReferring Provider: SELF [[id number]]Allergies As of Date: 11/12/2016(No Known Allergies)Date Reviewed: 11/12/2016Reviewed by: Nayeli Hawley Ma - Fully AssessedReason for Visit: Care [86]Primary Visit Diagnosis:39 weeks gestation of [Z3A.39] Other Visit Diagnosis:Encounter for supervision of other normal [Z34.80]Order(s):URINE OB DIP B/O [[id number]] Order #: [id number] as of 11/12/2016 Sig: CALCIUM CARBONATE 200 MG CALC* Take 500 mg by mouth as neede* ORAL Take by mouth. OMEGA-3 FATTY ACIDS 500 MG CA* Take 1,200 mg by mouth once d* VITAMIN B-6 ORAL Take by mouth. CEPHALEXIN 500 MG CAPSULE Take 1 capsule by mouth twice* HYDROCORTISONE 2.5 % TOPICAL * Apply 1 application to affect*Problem List As Of Date 11/12/2016 Noted Resolved Supervision of Normal First [Z34.00] INVALID FOR*03/01/2009 Supervision of other normal [Z34.80] INVALID FOR*08/20/2012 Threatened [O20.0] INVALID FOR*04/08/2013 History of miscarriage, currently [O09*INVALID FOR*08/07/2013 More... Nausea and vomiting in [O21.9] INVALID FOR*08/07/2013 More... Rapid first stage of labor [O62.3] INVALID FOR*08/07/2013 More... Encounter for supervision of other normal pregn*INVALID FOR* More... Group B Streptococcus carrier, +RV culture, cur*INVALID FOR*08/07/2013 Nausea/vomiting in [O21.9] INVALID FOR*09/05/2016 More... control counseling [Z30.09] INVALID FOR* More... Other instructions from your clinician: SEQUENTIAL SCREENINGS [facility] offers sequential screenings for women who are interested in screenings for chromosomal abnormalities and certain defects during a . The sequential screen combines ultrasound and blood tests to determine the risk of chromosomal abnormalities, including Down's Syndrome (Trisomy 21) and Trisomy 18, as well as open neural tube defects including spina bifida. Ultrasound examination is performed between 11 weeks and 13 weeks gestational age. Blood tests are drawn after the ultrasound and again later in the between 15 and 21 weeks gestational age. Please let your physician know if you are interested in this testing. It will require an appointment with our fuel conversion technician. This is not an ultrasound performed by a physician in our office during a routine visit. SIGNS AND SYMPTOMS OF LABOR 1. Contractions every 10 minutes or more often 2. Clear, pink, or brownish fluid (water) leaking from vagina 3. Feeling that baby is pushing down, pressure 4. Low, dull backache 5. Cramps that feel like a period 6. Cramps with or without diarrhea If you notice any of the above symptoms, contact our office at [phone] and ask to speak with a nurse. After hours, you can call [facility] registry at [phone] OR call [facility] at [phone] and ask to have the doctor show operations supervisor paged. If you consider this an emergency, dial 1-7-1 or go to your nearest emergency department. NEED HELP? Are you dealing with a violent or abusive relationship? Are you a victim of rape or sexual assult? Call [facility] 24 hour Crisis Hotline: 439.613.3921 or 245-987-8615. MANUAL Your Guide to a Healthy manual is now on-line. Visit [email or web address].[email or web address]/Healt hyPregnancyGuide to download your free copyEncounter Number: [id number] Status:Closed by FLACO DAS MD on 11/12/16 Normal [facility] HOSPon 11-08-2016 [facility] Routine Off ice Visit (WOOB) SERA KATHLEEN ([id number]) 1985 FDate Time Provider Department11/08/16 4:30 PM FLACO DAS During your visit today, we recorded the following information about you: Blood pressure Weight 112/68 88 kgTabatha Marleen Or 11/08/2016 4:37 PM SignedSEQUENTIAL SCREENINGSThe [facility] [facility] offers [facility] screenings for women who are interestedin screenings for chromosomal abnormalities and certain defects during apregnancy. The sequential screen combines ultrasound and blood tests todetermine the risk of chromosomal abnormalities, including Down's Syndrome(Trisomy 21) and Trisomy 18, as well as open neural tube defects includingspina bifida. Ultrasound examination is performed between 11 weeks and 13 weeksgestational age. Blood tests are drawn after the ultrasound and again later inthe between 15 and 21 weeks gestational age. Please let yourphysician know if you are interested in this testing. It will require anappointment with our fuel conversion technician. This is not an ultrasound performedby a physician in our office during a routine visit.SIGNS AND SYMPTOMS OF LABOR1. Contractions every 10 minutes or more often2. Clear, pink, or brownish fluid (water) leaking from vagina3. Feeling that baby is pushing down, pressure4. Low, dull backache5. Cramps that feel like a period6. Cramps with or without diarrheaIf you notice any of the above symptoms, contact our office at [phone] andask to speak with a nurse.After hours, you can call doctors registry at [phone] OR call [facility] at [phone] and ask to have the doctor show operations supervisor paged.If you consider this an emergency, dial 9-1-1 or go to your nearest emergencydepartment.NEED HELP? Are you dealing with a violent or abusive relationship? Are you avictim of rape or sexual assult? Call [facility] ([place]) 24 hourCrisis Hotline: 413.566.2933 or 948-987-7123. MANUALYour Guide to a Healthy manual is now on-line. [email or web address]/ HealthyPregnancyGuide to download your free copyReferring Provider: SELF [200]Allergies As of Date: 11/08/2016(No Known Allergies)Date Reviewed: 11/08/2016Reviewed by: Nayeli Hawley Ma - Fully AssessedReason for Visit: Care [86]Primary Visit Diagnosis:39 weeks gestation of [Z3A.39] Other Visit Diagnosis:Encounter for supervision of other normal [Z34.80]Order(s):URINE OB DIP B/O [[id number]] Order #: [id number] as of 11/08/2016 Sig: CALCIUM CARBONATE 200 MG CALC* Take 500 mg by mouth as neede* ORAL Take by mouth. OMEGA-3 FATTY ACIDS 500 MG CA* Take 1,200 mg by mouth once d* VITAMIN B-6 ORAL Take by mouth. CEPHALEXIN 500 MG CAPSULE Take 1 capsule by mouth twice* HYDROCORTISONE 2.5 % TOPICAL * Apply 1 application to affect*Problem List As Of Date 11/08/2016 Noted Resolved Supervision of Normal First [Z34.00] INVALID FOR*03/01/2009 Supervision of other normal [Z34.80] INVALID FOR*08/20/2012 Threatened [O20.0] INVALID FOR*04/08/2013 History of miscarriage, currently [O09*INVALID FOR*08/07/2013 More... Nausea and vomiting in [O21.9] INVALID FOR*08/07/2013 More... Rapid first stage of labor [O62.3] INVALID FOR*08/07/2013 More... Encounter for supervision of other normal pregn*INVALID FOR* More... Group B Streptococcus carrier, +RV culture, cur*INVALID FOR*08/07/2013 Nausea/vomiting in [O21.9] INVALID FOR*09/05/2016 More... control counseling [Z30.09] INVALID FOR* More... Notes for Staff Will only call if abnormal Other instructions from your clinician: SEQUENTIAL SCREENINGS The [facility] offers sequential screenings for women who are interested in screenings for chromosomal abnormalities and certain defects during a . The sequential screen combines ultrasound and blood tests to determine the risk of chromosomal abnormalities, including Down's Syndrome (Trisomy 21) and Trisomy 18, as well as open neural tube defects including spina bifida. Ultrasound examination is performed between 11 weeks and 13 weeks gestational age. Blood tests are drawn after the ultrasound and again later in the between 15 and 21 weeks gestational age. Please let your physician know if you are interested in this testing. It will require an appointment with our fuel conversion technician. This is not an ultrasound performed by a physician in our office during a routine visit. SIGNS AND SYMPTOMS OF LABOR 1. Contractions every 10 minutes or more often 2. Clear, pink, or brownish fluid (water) leaking from vagina 3. Feeling that baby is pushing down, pressure 4. Low, dull backache 5. Cramps that feel like a period 6. Cramps with or without diarrhea If you notice any of the above symptoms, contact our office at [phone] and ask to speak with a nurse. After hours, you can call doctors registry at [phone] OR call [facility] at [phone] and ask to have the doctor show operations supervisor paged. If you consider this an emergency, dial or go to your nearest emergency department. NEED HELP? Are you dealing with a violent or abusive relationship? Are you a victim of rape or sexual assult? Call [facility] ([place]) 24 hour Crisis Hotline: 908.584.4740 or 773-245-9735. MANUAL Your Guide to a Healthy manual is now on-line. Visit [email or web address] hyPregnancyGuide to download your free copyFollow Up: Will only call if abnormalDisposition: Return in about 1 week (around 11/15/2016) for routine OB check.Follow-up and Disposition History RecordedEncounter Number: [id number] Status:Closed by FLACO DAS MD on 11/08/16 [facility] 11-02-2016 [facility] Routine Off ice Visit (WOOB) SERA KATHLEEN ([id number]) 1985 [facility] Time Provider Department11/02/16 10:40 AM FLACO DAS WOOB During your visit today, we recorded the following information about you: Blood pressure Weight 120/74 86.2 kgTabathjulianne Marleen Bravo 11/02/2016 10:47 AM SignedSEQUENTIAL SCREENINGSThe [facility] offers [facility] screenings for women who are interestedin screenings for chromosomal abnormalities and certain defects during apregnancy. The sequential screen combines ultrasound and blood tests todetermine the risk of chromosomal abnormalities, including Down's Syndrome(Trisomy 21) and Trisomy 18, as well as open neural tube defects includingspina bifida. Ultrasound examination is performed between 11 weeks and 13 weeksgestational age. Blood tests are drawn after the ultrasound and again later inthe between 15 and 21 weeks gestational age. Please let yourphysician know if you are interested in this testing. It will require anappointment with our fuel conversion technician. This is not an ultrasound performedby a physician in our office during a routine visit.SIGNS AND SYMPTOMS OF LABOR1. Contractions every 10 minutes or more often2. Clear, pink, or brownish fluid (water) leaking from vagina3. Feeling that baby is pushing down, pressure4. Low, dull backache5. Cramps that feel like a period6. Cramps with or without diarrheaIf you notice any of the above symptoms, contact our office at [phone] andask to speak with a nurse.After hours, you can call doctors registry at [phone] OR call [facility] at [phone] and ask to have the doctor show operations supervisor paged.If you consider this an emergency, dial 9-1-1 or go to your nearest emergencydepartment.NEED HELP? Are you dealing with a violent or abusive relationship? Are you avictim of rape or sexual assult? Call [facility] ([place]) 24 hourCrisis Hotline: 387.928.4900 or 788-919-6143. MANUALYour Guide to a Healthy manual is now on-line. [email or web address]/ HealthyPregnancyGuide to download your free copyReferring Provider: SELF [200]Allergies As of Date: 11/02/2016(No Known Allergies)Date Reviewed: 11/02/2016Reviewed by: Nayeli Hawley Ma - Fully AssessedReason for Visit: Care [86]Primary Visit Diagnosis:38 weeks gestation of [Z3A.38] Other Visit Diagnosis:Encounter for supervision of other normal [Z34.80]Order(s):URINE OB DIP B/O [[id number]] Order #: [id number] as of 11/02/2016 Sig: CALCIUM CARBONATE 200 MG CALC* Take 500 mg by mouth as neede* ORAL Take by mouth. OMEGA-3 FATTY ACIDS 500 MG CA* Take 1,200 mg by mouth once d* VITAMIN B-6 ORAL Take by mouth. CEPHALEXIN 500 MG CAPSULE Take 1 capsule by mouth twice* HYDROCORTISONE 2.5 % TOPICAL * Apply 1 application to affect*Problem List As Of Date 11/02/2016 Noted Resolved Supervision of Normal First [Z34.00] INVALID FOR*03/01/2009 Supervision of other normal [Z34.80] INVALID FOR*08/20/2012 Threatened [O20.0] INVALID FOR*04/08/2013 History of miscarriage, currently [O09*INVALID FOR*08/07/2013 More... Nausea and vomiting in [O21.9] INVALID FOR*08/07/2013 More... Rapid first stage of labor [O62.3] INVALID FOR*08/07/2013 More... Encounter for supervision of other normal pregn*INVALID FOR* More... Group B Streptococcus carrier, +RV culture, cur*INVALID FOR*08/07/2013 Nausea/vomiting in [O21.9] INVALID FOR*09/05/2016 More... control counseling [Z30.09] INVALID FOR* More... Notes for Staff Will only call if abnormal Other instructions from your clinician: SEQUENTIAL SCREENINGS [facility] offers sequential screenings for women who are interested in screenings for chromosomal abnormalities and certain defects during a . The sequential screen combines ultrasound and blood tests to determine the risk of chromosomal abnormalities, including Down's Syndrome (Trisomy 21) and Trisomy 18, as well as open neural tube defects including spina bifida. Ultrasound examination is performed between 11 weeks and 13 weeks gestational age. Blood tests are drawn after the ultrasound and again later in the between 15 and 21 weeks gestational age. Please let your physician know if you are interested in this testing. It will require an appointment with our fuel conversion technician. This is not an ultrasound performed by a physician in our office during a routine visit. SIGNS AND SYMPTOMS OF LABOR 1. Contractions every 10 minutes or more often 2. Clear, pink, or brownish fluid (water) leaking from vagina 3. Feeling that baby is pushing down, pressure 4. Low, dull backache 5. Cramps that feel like a period 6. Cramps with or without diarrhea If you notice any of the above symptoms, contact our office at [phone] and ask to speak with a nurse. After hours, you can call doctors registry at [phone] OR call [facility] at [phone] and ask to have the doctor show operations supervisor paged. If you consider this an emergency, dial 9-0 or go to your nearest emergency department. NEED HELP? Are you dealing with a violent or abusive relationship? Are you a victim of rape or sexual assult? Call [facility] ([place]) 24 hour Crisis Hotline: 557.109.1931 or 200-148-8753. MANUAL Your Guide to a Healthy manual is now on-line. Visit [email or web address] hyPregnancyGuide to download your free copyFollow Up: Will only call if abnormalDisposition: Return in about 1 week (around 11/09/2016) for routine OB check.Follow-up and Disposition History RecordedEncbrotman medical centerer Number: [id number] Status:Closed by FLACO DAS MD on 11/02/16 Normal [facility] 10-26-2016 [facility] Routine Off ice Visit (WOOB) SERA KATHLEEN ([id number]) 1985 [facility] Time Provider Department10/26/16 10:20 AM FARHAT SANON During your visit today, we recorded the following information about you: Blood pressure Weight 114/62 85.3 kgTabatha Marleen Bravo 10/26/2016 10:19 AM SignedSEQUENTIAL SCREENINGSThe [facility] offers sequential screenings for women who are interestedin screenings for chromosomal abnormalities and certain defects during apregnancy. The sequential screen combines ultrasound and blood tests todetermine the risk of chromosomal abnormalities, including Down's Syndrome(Trisomy 21) and Trisomy 18, as well as open neural tube defects includingspina bifida. Ultrasound examination is performed between 11 weeks and 13 weeksgestational age. Blood tests are drawn after the ultrasound and again later inthe between 15 and 21 weeks gestational age. Please let yourphysician know if you are interested in this testing. It will require anappointment with our fuel conversion technician. This is not an ultrasound performedby a physician in our office during a routine visit.SIGNS AND SYMPTOMS OF LABOR1. Contractions every 10 minutes or more often2. Clear, pink, or brownish fluid (water) leaking from vagina3. Feeling that baby is pushing down, pressure4. Low, dull backache5. Cramps that feel like a period6. Cramps with or without diarrheaIf you notice any of the above symptoms, contact our office at [phone] andask to speak with a nurse.After hours, you can call doctors registry at [phone] OR call [facility] at [phone] and ask to have the doctor show operations supervisor paged.If you consider this an emergency, dial 7-1-0 or go to your nearest emergencydepartment.NEED HELP? Are you dealing with a violent or abusive relationship? Are you avictim of rape or sexual assult? Call [facility] ([place]) 24 hourCrisis Hotline: 121.127.9170 or 982-744-3158. MANUALYour Guide to a Healthy manual is now on-line. [email or web address]/ HealthyPregnancyGuide to download your free copyReferring Provider: SELF [200]Allergies As of Date: 10/26/2016(No Known Allergies)Date Reviewed: 10/26/2016Reviewed by: Nayeli Hawley Ma - Fully AssessedReason for Visit: Care [86]Primary Visit Diagnosis:37 weeks gestation of [Z3A.37] Other Visit Diagnoses:Encounter for supervision of other normal [Z34.80] control counseling [Z30.09]Order(s):URINE OB DIP B/O [[id number]] Order #: [id number] as of 10/26/2016 Sig: CALCIUM CARBONATE 200 MG CALC* Take 500 mg by mouth as neede* ORAL Take by mouth. OMEGA-3 FATTY ACIDS 500 MG CA* Take 1,200 mg by mouth once d* VITAMIN B-6 ORAL Take by mouth. CEPHALEXIN 500 MG CAPSULE Take 1 capsule by mouth twice* HYDROCORTISONE 2.5 % TOPICAL * Apply 1 application to affect*Problem List As Of Date 10/26/2016 Noted Resolved Supervision of Normal First [Z34.00] INVALID FOR*03/01/2009 Supervision of other normal [Z34.80] INVALID FOR*08/20/2012 Threatened [O20.0] INVALID FOR*04/08/2013 History of miscarriage, currently [O09*INVALID FOR*08/07/2013 More... Nausea and vomiting in [O21.9] INVALID FOR*08/07/2013 More... Rapid first stage of labor [O62.3] INVALID FOR*08/07/2013 More... Encounter for supervision of other normal pregn*INVALID FOR* More... Group B Streptococcus carrier, +RV culture, cur*INVALID FOR*08/07/2013 Nausea/vomiting in [O21.9] INVALID FOR*09/05/2016 More... control counseling [Z30.09] INVALID FOR* More... Notes for Staff Will only call if abnormal Other instructions from your clinician: SEQUENTIAL SCREENINGS [facility] offers sequential screenings for women who are interested in screenings for chromosomal abnormalities and certain defects during a . The sequential screen combines ultrasound and blood tests to determine the risk of chromosomal abnormalities, including Down's Syndrome (Trisomy 21) and Trisomy 18, as well as open neural tube defects including spina bifida. Ultrasound examination is performed between 11 weeks and 13 weeks gestational age. Blood tests are drawn after the ultrasound and again later in the between 15 and 21 weeks gestational age. Please let your physician know if you are interested in this testing. It will require an appointment with our fuel conversion technician. This is not an ultrasound performed by a physician in our office during a routine visit. SIGNS AND SYMPTOMS OF LABOR 1. Contractions every 10 minutes or more often 2. Clear, pink, or brownish fluid (water) leaking from vagina 3. Feeling that baby is pushing down, pressure 4. Low, dull backache 5. Cramps that feel like a period 6. Cramps with or without diarrhea If you notice any of the above symptoms, contact our office at [phone] and ask to speak with a nurse. After hours, you can call doctors registry at [phone] OR call [facility] at [phone] and ask to have the doctor show operations supervisor paged. If you consider this an emergency, dial 9-1-9 or go to your nearest emergency department. NEED HELP? Are you dealing with a violent or abusive relationship? Are you a victim of rape or sexual assult? Call [facility] ([place]) 24 hour Crisis Hotline: 343.379.1056 or 845-713-7223. MANUAL Your Guide to a Healthy manual is now on-line. Visit [email or web address] hyPregnancyGuide to download your free copyFollow Up: Will only call if abnormalDisposition: Return in about 1 week (around 11/02/2016) for routine OB check.Follow-up and Disposition History RecordedEncounter Number: [id number] Status:Closed by FARHAT SANON MD on 10/26/16 Normal [facility] GROUP B STREP PCRon 10-20-19 17 GROUP B STREP PCR Negative Normal [facility] Comment on above: Performed By: #### G BPCR ####[facility] [id number] [place], [place] [id number] HOSPon 10-19-2016 HOSP Routine Off ice Visit (WOOB) SERA KATHLEEN ([id number]) 1985 [facility] Time Provider Department10/19/16 10:00 AM ISAAK CARTER WOOB During your visit today, we recorded the following information about you: Blood pressure Weight 122/68 86.2 kgZoë Louis LPN 10/19/2016 10:11 AM SignedSEQUENTIAL SCREENINGSThe [facility] offers sequential screenings for women who are interestedin screenings for chromosomal abnormalities and certain defects during apregnancy. The sequential screen combines ultrasound and blood tests todetermine the risk of chromosomal abnormalities, including Down's Syndrome(Trisomy 21) and Trisomy 18, as well as open neural tube defects includingspina bifida. Ultrasound examination is performed between 11 weeks and 13 weeksgestational age. Blood tests are drawn after the ultrasound and again later inthe between 15 and 21 weeks gestational age. Please let yourphysician know if you are interested in this testing. It will require anappointment with our fuel conversion technician. This is not an ultrasound performedby a physician in our office during a routine visit.SIGNS AND SYMPTOMS OF LABOR1. Contractions every 10 minutes or more often2. Clear, pink, or brownish fluid (water) leaking from vagina3. Feeling that baby is pushing down, pressure4. Low, dull backache5. Cramps that feel like a period6. Cramps with or without diarrheaIf you notice any of the above symptoms, contact our office at [phone] andask to speak with a nurse.After hours, you can call doctors registry at [phone] OR call [facility] at [phone] and ask to have the doctor show operations supervisor paged.If you consider this an emergency, dial 91-6 or go to your nearest emergencydepartment.NEED HELP? Are you dealing with a violent or abusive relationship? Are you avictim of rape or sexual assult? Call [facility] ([place]) 24 hourCrisis Hotline: 201.523.7104 or 652-179-8415. MANUALYour Guide to a Healthy manual is now on-line. [email or web address]/ HealthyPregnancyGuide to download your free copyReferring Provider: SELF [200]Allergies As of Date: 10/19/2016(No Known Allergies)Date Reviewed: 10/19/2016Reviewed by: Zoë Louis LPN - Fully AssessedReason for Visit: Care [86]Primary Visit Diagnosis:Encounter for supervision of other normal , third trimester [Z34.83] Other Visit Diagnosis:36 weeks gestation of [Z3A.36]Order(s):URINE OB DIP B/O [[id number]] Order #: [id number] STREPTOCOCCUS B PCR [[id number]] Order #: [id number] as of 10/19/2016 Sig: CALCIUM CARBONATE 200 MG CALC* Take 500 mg by mouth as neede* VITAMIN B-6 ORAL Take by mouth. CEPHALEXIN 500 MG CAPSULE Take 1 capsule by mouth twice* HYDROCORTISONE 2.5 % TOPICAL * Apply 1 application to affect* ORAL Take by mouth. OMEGA-3 FATTY ACIDS 500 MG CA* Take 1,200 mg by mouth once d*Problem List As Of Date 10/19/2016 Noted Resolved Supervision of Normal First [Z34.00] INVALID FOR*03/01/2009 Supervision of other normal [Z34.80] INVALID FOR*08/20/2012 Threatened [O20.0] INVALID FOR*04/08/2013 History of miscarriage, currently [O09*INVALID FOR*08/07/2013 More... Nausea and vomiting in [O21.9] INVALID FOR*08/07/2013 More... Rapid first stage of labor [O62.3] INVALID FOR*08/07/2013 More... Encounter for supervision of other normal pregn*INVALID FOR* More... Group B Streptococcus carrier, +RV culture, cur*INVALID FOR*08/07/2013 Nausea/vomiting in [O21.9] INVALID FOR*09/05/2016 More... Other instructions from your clinician: SEQUENTIAL SCREENINGS [facility] offers sequential screenings for women who are interested in screenings for chromosomal abnormalities and certain defects during a . The sequential screen combines ultrasound and blood tests to determine the risk of chromosomal abnormalities, including Down's Syndrome (Trisomy 21) and Trisomy 18, as well as open neural tube defects including spina bifida. Ultrasound examination is performed between 11 weeks and 13 weeks gestational age. Blood tests are drawn after the ultrasound and again later in the between 15 and 21 weeks gestational age. Please let your physician know if you are interested in this testing. It will require an appointment with our fuel conversion technician. This is not an ultrasound performed by a physician in our office during a routine visit. SIGNS AND SYMPTOMS OF LABOR 1. Contractions every 10 minutes or more often 2. Clear, pink, or brownish fluid (water) leaking from vagina 3. Feeling that baby is pushing down, pressure 4. Low, dull backache 5. Cramps that feel like a period 6. Cramps with or without diarrhea If you notice any of the above symptoms, contact our office at [phone] and ask to speak with a nurse. After hours, you can call doctors registry at [phone] OR call [facility] at [phone] and ask to have the doctor show operations supervisor paged. If you consider this an emergency, dial 4-0-3 or go to your nearest emergency department. NEED HELP? Are you dealing with a violent or abusive relationship? Are you a victim of rape or sexual assult? Call [facility] ([place]) 24 hour Crisis Hotline: 853.213.4168 or 774-364-0516. MANUAL Your Guide to a Healthy manual is now on-line. Visit [email or web address] hyPregnancyGuide to download your free copyDisposition: Return in about 1 week (around 10/26/2016).Follow-up and Disposition History RecordedEncounter Number: [id number] Status:Closed by ISAAK JENNINGS MD on 10/19/16 [facility] 10-03-2016 [facility] Routine Off ice Visit (WOOB) SERA KATHLEEN ([id number]) 1985 [facility] Time Provider Department10/03/16 3:40 PM FLACO DAS WOOB During your visit today, we recorded the following information about you: Blood pressure Weight 128/76 87.1 kgTabatha Marleen Or 10/03/2016 3:47 PM SignedSEQUENTIAL SCREENINGSThe [facility] offers sequential screenings for women who are interestedin screenings for chromosomal abnormalities and certain defects during apregnancy. The sequential screen combines ultrasound and blood tests todetermine the risk of chromosomal abnormalities, including Down's Syndrome(Trisomy 21) and Trisomy 18, as well as open neural tube defects includingspina bifida. Ultrasound examination is performed between 11 weeks and 13 weeksgestational age. Blood tests are drawn after the ultrasound and again later inthe between 15 and 21 weeks gestational age. Please let yourphysician know if you are interested in this testing. It will require anappointment with our fuel conversion technician. This is not an ultrasound performedby a physician in our office during a routine visit.SIGNS AND SYMPTOMS OF LABOR1. Contractions every 10 minutes or more often2. Clear, pink, or brownish fluid (water) leaking from vagina3. Feeling that baby is pushing down, pressure4. Low, dull backache5. Cramps that feel like a period6. Cramps with or without diarrheaIf you notice any of the above symptoms, contact our office at [phone] andask to speak with a nurse.After hours, you can call doctors registry at [phone] OR call [facility] at [phone] and ask to have the doctor show operations supervisor paged.If you consider this an emergency, dial 3-7-1 or go to your nearest emergencydepartment.NEED HELP? Are you dealing with a violent or abusive relationship? Are you avictim of rape or sexual assult? Call [facility] ([place]) 24 hourCrisis Hotline: 189.377.3448 or 809-969-1161. MANUALYour Guide to a Healthy manual is now on-line. [email or web address]/ HealthyPregnancyGuide to download your free copyReferring Provider: FLACO DAS [[id number]]Allergies As of Date: 10/03/2016(No Known Allergies)Date Reviewed: 10/03/2016Reviewed by: Nayeli Hawley Ma - Fully AssessedReason for Visit: Care [86]Primary Visit Diagnosis:34 weeks gestation of [Z3A.34] Other Visit Diagnosis:Encounter for supervision of other normal [Z34.80]Order(s):URINE OB DIP B/O [[id number]] Order #: [id number] as of 10/03/2016 Sig: CALCIUM CARBONATE 200 MG CALC* Take 500 mg by mouth as neede* ORAL Take by mouth. OMEGA-3 FATTY ACIDS 500 MG CA* Take 1,200 mg by mouth once d* VITAMIN B-6 ORAL Take by mouth. CEPHALEXIN 500 MG CAPSULE Take 1 capsule by mouth twice* HYDROCORTISONE 2.5 % TOPICAL * Apply 1 application to affect*Problem List As Of Date 10/03/2016 Noted Resolved Supervision of Normal First [Z34.00] INVALID FOR*03/01/2009 Supervision of other normal [Z34.80] INVALID FOR*08/20/2012 Threatened [O20.0] INVALID FOR*04/08/2013 History of miscarriage, currently [O09*INVALID FOR*08/07/2013 More... Nausea and vomiting in [O21.9] INVALID FOR*08/07/2013 More... Rapid first stage of labor [O62.3] INVALID FOR*08/07/2013 More... Encounter for supervision of other normal pregn*INVALID FOR* More... Group B Streptococcus carrier, +RV culture, cur*INVALID FOR*08/07/2013 Nausea/vomiting in [O21.9] INVALID FOR*09/05/2016 More... Other instructions from your clinician: SEQUENTIAL SCREENINGS [facility] offers sequential screenings for women who are interested in screenings for chromosomal abnormalities and certain defects during a . The sequential screen combines ultrasound and blood tests to determine the risk of chromosomal abnormalities, including Down's Syndrome (Trisomy 21) and Trisomy 18, as well as open neural tube defects including spina bifida. Ultrasound examination is performed between 11 weeks and 13 weeks gestational age. Blood tests are drawn after the ultrasound and again later in the between 15 and 21 weeks gestational age. Please let your physician know if you are interested in this testing. It will require an appointment with our fuel conversion technician. This is not an ultrasound performed by a physician in our office during a routine visit. SIGNS AND SYMPTOMS OF LABOR 1. Contractions every 10 minutes or more often 2. Clear, pink, or brownish fluid (water) leaking from vagina 3. Feeling that baby is pushing down, pressure 4. Low, dull backache 5. Cramps that feel like a period 6. Cramps with or without diarrhea If you notice any of the above symptoms, contact our office at [phone] and ask to speak with a nurse. After hours, you can call doctors registry at [phone] OR call [facility] at [phone] and ask to have the doctor show operations supervisor paged. If you consider this an emergency, dial 8-4-5 or go to your nearest emergency department. NEED HELP? Are you dealing with a violent or abusive relationship? Are you a victim of rape or sexual assult? Call [facility] ([place]) 24 hour Crisis Hotline: 893.938.1704 or 505-242-7831. MANUAL Your Guide to a Healthy manual is now on-line. Visit [email or web address] hyPregnancyGuide to download your free copyDisposition: Return in about 2 weeks (around 10/17/2016) for routine OB check.Follow-up and Disposition History RecordedEncounter Number: [id number] Status:Closed by FLACO DAS MD on 10/03/16 Normal [facility] Culture, urine Bacteria identified Cx Nom (U) Presumptive E. coli [place] Work Phone: Vital Signs Date Time Vital Sign Value Performing Clinician Abigail hancock 03-18-2023 08:33-0500 Body height 165.[address] Sammie Guy Work Phone: [place] 03-18-2023 08:32-0500 Body mass index (BMI) [Ratio] 26.2 kg/m2 Dr. Sammie Guy Work Phone: [place] 03-18-2023 08:32-0500 Body weight 71.[address] Sammie Guy Work Phone: [place] 03-18-2023 08:32-0500 Diastolic blood pressure 82 mm[Hg] Dr. Sammie Guy Work Phone: [place] 03-18-2023 08:32-0500 Systolic blood pressure 140 mm[Hg] Dr. Sammie Guy Work Phone: [place] 09-19-2022 09:28-0400 Body height 165.[address] Sammie Guy Work Phone: [place] 09-19-2022 09:28-0400 Body mass index (BMI) [Ratio] 26.4 kg/m2 Dr. Sammie Guy Work Phone: [place] 09-19-2022 09:28-0400 Body temperature 98 [degF] Dr. Sammie uGy Work Phone: [place] 09-19-2022 09:28-0400 Body weight 72.[address] Sammie Guy Work Phone: [place] 09-19-2022 09:28-0400 Diastolic blood pressure 80 mm[Hg] Dr. Sammie Guy Work Phone: [place] 09-19-2022 09:28-0400 Heart rate 76 /min Dr. Sammie Guy Work Phone: [place] 09-19-2022 09:28-0400 Respiratory rate 16 /min Dr. Sammie Guy Work Phone: [place] 09-19-2022 09:28-0400 SaO2% (BldA) [Mass fraction] 96 % Dr. Sammie Guy Work Phone: [place] 09-19-2022 09:28-0400 Systolic blood pressure 110 mm[Hg] Dr. Sammie Guy Work Phone: [place] 12-20-2021 08:34-0400 Body temperature 99.6 [degF] Dr. Sammie Guy Work Phone: [place] Work Phone: 12-20-2021 08:34-0400 Diastolic blood pressure 66 mm[Hg] Dr. Sammie Guy Work Phone: [place] Work Phone: 12-20-2021 08:34-0400 Heart rate 119 /min Dr. Sammie Guy Work Phone: [place] Work Phone: 12-20-2021 08:34-0400 Respiratory rate 14 /min Dr. Sammie Guy Work Phone: [place] Work Phone: 12-20-2021 08:34-0400 SaO2% (BldA) [Mass fraction] 99 % Dr. Sammie Guy Work Phone: [place] Work Phone: 12-20-2021 08:34-0400 Systolic blood pressure 118 mm[Hg] Dr. Sammie Guy Work Phone: [place] Work Phone: 06-29-2021 17:08-0400 Body temperature 98.1 [degF] Dr. Sammie Guy Work Phone: [place] Work Phone: 06-29-2021 17:08-0400 Diastolic blood pressure 72 mm[Hg] Dr. Sammie Guy Work Phone: [place] Work Phone: 06-29-2021 17:08-0400 Heart rate 76 /min Dr. Sammie Guy Work Phone: [place] Work Phone: 06-29-2021 17:08-0400 Respiratory rate 14 /min Dr. Sammie Guy Work Phone: [place] Work Phone: 06-29-2021 17:08-0400 Systolic blood pressure 132 mm[Hg] Dr. Sammie Guy Work Phone: [place] Work Phone: 05-01-2021 15:34-0500 Body height 165.[address] Sammie Guy Work Phone: [place] Work Phone: 05-01-2021 15:34-0500 Body mass index (BMI) [Ratio] 27.3 kg/m2 Dr. Sammie Guy Work Phone: [place] Work Phone: 05-01-2021 15:34-0500 Body temperature 97.8 [degF] Dr. Sammie Guy Work Phone: [place] Work Phone: 05-01-2021 15:34-0500 Body weight 74.[address] Sammie Guy Work Phone: [place] Work Phone: 05-01-2021 15:34-0500 Diastolic blood pressure 84 mm[Hg] Dr. Sammie Guy Work Phone: [place] Work Phone: 05-01-2021 15:34-0500 Heart rate 76 /min Dr. Sammie Guy Work Phone: [place] Work Phone: 05-01-2021 15:34-0500 Respiratory rate 16 /min Dr. Sammie Guy Work Phone: [place] Work Phone: 05-01-2021 15:34-0500 SaO2% (BldA) [Mass fraction] 100 % Dr. Sammie Guy Work Phone: [place] Work Phone: 05-01-2021 15:34-0500 Systolic blood pressure 118 mm[Hg] Dr. Sammie Guy Work Phone: [place] Work Phone: Encounters Encounter Date Encounter Type Care Provider Facility Start: 12-04-2024 End: 12-04-[address] Sammie Guy DO Work Phone: [facility] [place] Start: 12-04-2024 End: 12-04-2024 Patient encounter procedure Delmy Torres AUDIOVISUAL LEAD TECHNICIAN-C -[facility] [place] Work Phone: Start: 12-04-2024 End: 12-04-2024 ambulatory Sammie Guy Facility:[place] Start: 05-06-2024 ambulatory Health Risk Assessment Facility:[place] Start: 05-06-2024 End: 05-06-2024 ambulatory Maryjo Leigh Facility:[place] Start: 04-06-2024 Encounter for gynecological examination (general) (routine) without abnormal findings [facility] [place] Start: 04-06-2024 End: 04-06-2024 ambulatory Maryjo Leigh Facility:[facility] Start: 03-18-2023 End: 03-18-[address] Sammie Guy Work Phone: [place] Work Phone: Start: 03-18-2023 End: 03-18-[address] Sammie Guy Work Phone: [place] Work Phone: Start: 03-18-2023 End: 03-18-[address] Sammie Guy Work Phone: [facility] Work Phone: Start: 09-19-2022 End: 09-19-[address] Sammie Guy Work Phone: [place] Work Phone: Start: 09-19-2022 End: 09-19-[address] Sammie Gyu Work Phone: [place] Start: 09-19-2022 End: 09-19-[address] Sammie Guy Work Phone: [place] Start: 12-20-2021 End: 12-20-[address] Sammie Guy Work Phone: [place] Work Phone: Start: 12-20-2021 End: 12-20-[address] [facility] Start: 12-20-2021 End: 12-20-[address] Sammie Guy Work Phone: [facility] Start: 06-29-2021 End: 06-29-[address] [facility]amm[facility] Start: 06-29-2021 End: 06-29-[address] Sammie Guy Work Phone: [facility] Start: 05-01-2021 End: 05-01-[address] Sammie Guy Work Phone: [facility] Start: 12-27-2016 End: 12-28-2016 Ambulatory FLACO DAS [facility] Start: 11-12-2016 End: 11-13-2016 Ambulatory FLACO DAS [facility] Start: 11-08-2016 End: 11-09-2016 Ambulatory FLACO DAS [facility] Start: 11-02-2016 End: 11-05-2016 Ambulatory FLACO DAS [facility] Start: 10-26-2016 End: 10-29-2016 Ambulatory FARHAT SANON [facility] Start: 10-19-2016 End: 10-22-2016 Ambulatory ISAAK JENNINGS [facility] Start: 10-03-2016 End: 10-04-2016 Ambulatory FLACO DAS [facility] Procedures Date Procedure Procedure Detail Performing Clinician Start: 12-04-2024 Radex ankle complete minimum [address] Sammie Guy DO Work Phone: Start: 06-29-[address] Sammie Guy Work Phone: Urine culture Dr. Sammie Guy Work Phone: Urine culture Dr. Sammie Guy Work Phone: Plan of Treatment Date Care Activity Detail Author Start: 03-18-2023 Liquid based cervica l cytology screening [place] Path report.final Dx Spec [facility] Immunizations Immunization Date Immunization Notes Care Provider Fa cility 02-04-2020 influenza, injectabl e, quadrivalent, preservative free Dr. Sammie Guy Work Phone: [place] 02-04-2020 influenza, seasonal, injectable Dr. Sammie Guy Work Phone: [place] 02-24-2019 influenza, injectabl e, quadrivalent, preservative free Dr. Sammie Gyu Work Phone: [place] 02-24-2019 influenza, seasonal, injectable Dr. Sammie Guy Work Phone: [place] 01-13-2018 influenza, injectabl e, quadrivalent, preservative free Dr. Sammie Guy Work Phone: [place] 01-13-2018 influenza, seasonal, injectable Dr. Sammie Guy Work Phone: [place] 02-07-2017 influenza, injectabl e, quadrivalent, preservative free Dr. Sammie Guy Work Phone: [place] 02-07-2017 influenza, seasonal, injectable Dr. Sammie Guy Work Phone: [place] 09-05-2016 tetanus toxoid, redu alonzo diphtheria toxoid, and acellular pertussis vaccine, adsorbed Dr. Sammie Guy Work Phone: [place] 12-29-2015 influenza, injectabl e, quadrivalent, preservative free Dr. Sammie Guy Work Phone: [place] 12-29-2015 influenza, seasonal, injectable Dr. Sammie Guy Work Phone: [place] 01-05-2015 influenza, injectabl e, quadrivalent, preservative free Dr. Sammie Guy Work Phone: [place] 01-05-2015 influenza, seasonal, injectable Dr. Sammie Guy Work Phone: [place] 03-31-2014 tetanus toxoid, redu alonzo diphtheria toxoid, and acellular pertussis vaccine, adsorbed Dr. Sammie Guy Work Phone: [place] Payers Date Payer Category Payer Self-pay [id number] 2023 Unknown [id number] 2016 Unknown [id number] Unknown [id number] Unknown [id number] [id number] Unknown [id number] [id number] [id number] Unknown [id number] Social History Date Type Detail Facility Start: 06-29-2021 End: 03-18-2023 Tobacco smoking status NHIS Unknown if ever smoked [place] Start: 11-14-2016 None [facility] Start: 1985 Sex Assigned At Female [facility] Start: 04-06-2024 Tobacco smoking stat us NHIS Never smoked tobacco (finding) [place] Sex Female [facility] Radiology Diagnostic study note 12-04-2024 Note Date & Type Note Facility 12-04-2024 Radiology Diagnostic study note [facility] Imaging Services [address], [place] [address] Ankle min 3 Views MR#: [id number] Acct: [id number] Name: SERA KATHLEEN Rep #: [id number] : 1985 F 39 From: Donnie Pimentel MD PCP: Dr. Sammie Guy DO Status: REG CLI Study:Ankle min 3 Views Date of Exam: Exam# [id number] Ordering Dr: Delmy Torres NP AUDIOVISUAL LEAD TECHNICIAN-C PROCEDURE: ANKLE MIN 3 VIEWS 12/04/2024 REASON FOR EXAM: RIGHT ANKLE EDEMA TECHNIQUE: Procedure Code: RADANK Modality: DX Procedure: ANKLE MIN 3 VIEWS Laterality: Right ankle COMPARISON: None FINDINGS: Bones: No fracture seen. Joints: Normal alignment. Mortise appears intact. No effusion. Soft tissues: Soft tissue swelling. Other: RAD/Ankle min 3 Views IMPRESSION: Soft tissue swelling. No fracture seen. Reading Location: [place] [address] CC: AUDIOVISUAL LEAD TECHNICIAN-C Delmy Torres; Dr. Sammie Guy DO ~ Lay Out Worker: Signed [place] Evaluation note Note Date & Type Note Facility Evaluation note Diagnosis Onset Date Cystitis acute Urinary tract infection acut e [place] Work Phone: Evaluation note Note Date & Type Note Facility Evaluation note Diagnosis Onset Date Urinary tract infection acut e Urinary tract infection with hematuria acute [place] Work Phone: Evaluation note Note Date & Type Note Facility Evaluation note Diagnosis Onset Date Cystitis acute [place] Work Phone: Evaluation note Note Date & Type Note Facility Evaluation note Diagnosis Onset Date Encounter for routine gyneco logical examination noneactive [place] Work Phone: Evaluation note Note Date & Type Note Facility Evaluation note No assessment information availa ble [place] Work Phone: Reason for referral (narrative) Note Date & Type Note Facility Reason for referral (narrative) No reason for referral information available [place] Work Phone: Summary Purpose Family History Relationship Condition Age at Onset Recorded Date/T kyleigh grandmother Rheumatoid arthritis Unknown Malignant neoplasm of breast Unknown Cardiac disease Unknown grandfather Malignant neoplasm Unknown Advance Directives Advance Directive Response Recorded Date/ Time Living Will No November 14 7:54am Power of Translator Deaf No November 14 017 7:54am Advance Directive Response Recorded Date/ Time Living Will No November 14 6:54am Power of Translator Deaf No November 14 017 6:54am Chief Complaint and Reason for Visit Chief Complaint Urinary tract infect ion Urinary tract infection Reason for Visit Cystitis Urinary tract infection Chief Complaint Urinary tract infect ion Reason for Visit Urinary tract infect ion Urinary tract infection with hematuria Chief Complaint CONCERN FOR UTI Urgency of urination Reason for Visit Cystitis Chief Complaint Annual (GROUT WORKER) Reason for Visit Encounter for routin e gynecological examination Chief Complaint Admit Date Right ankle edema December 04, 2024 11:35am Additional Source Comments INFORMATION SOURCE (unrecogn ized section and content) DATE CREATED AUTHOR 09/25/2017 [facility] DATE CREATED AUTHOR AUTHOR'S ORGANIZ ATION 12/22/2024 [facility] Goals (unrecognized section and content) Goals may be documented in a n alternate sectionGoals may be documented in an alternate sectionGoals may be documented in an alternate sectionGoals may be documented in an alternate sectionGoals may be documented in an alternate section Care Teams (unrecognized sec tion and content) Team Status: Active Member Role Status Dates Dr. Sammie Guy DO Family Provider Active Dr. Sammie Guy DO Primary Care Provider Active Team Status: Inactive Member Role Status Dates Dr. Sammie Guy DO Primary Care Provider, Referring P rovider Active Steven RODRIGUEZ PA Attending Provider Active Team Status: Inactive Member Role Status Dates Dr. Sammie Guy DO Primary Care Provider Active MICHAEL Foster Attending Provider, Referring Provi luciano Active Team Status: Active Member Role Status Dates Dr. Sammie Guy DO Family Provider Active Team Status: Inactive Member Role Status Dates Dr. Sammie Guy DO Referring Provider Active Dr. Maryjo Leigh DO Attending Provider Activ e Team Status: Inactive Member Role Status Dates Dr. Maryjo Leigh DO Attending Provider, Refe rring Provider Active Team Status: Active Member Role/Relationship Status Dates Dr. Sammie Guy DO Primary care physician Active Team Status: Inactive Member Role/Relationship Status Dates Dr. Sammie Malys , DO Primary care physician Active Start: December 04, 2024 End: December 04, 2024 Delmy Torres AUDIOVISUAL LEAD TECHNICIAN, AUDIOVISUAL LEAD TECHNICIAN-C Attending physician Active Start: December 04, 2024 End: December 04, 2024 Delmy Torres AUDIOVISUAL LEAD TECHNICIAN, AUDIOVISUAL LEAD TECHNICIAN-C Referring Provider Active Start: December 04, 2024 End: December 04, 2024 FOR RECORDS PERTAINING TO PATIENTS WHO ARE OR HAVE BEEN ENROLLED IN A CHEMICAL DEPENDENCY/SUBSTANCEABUSE PROGRAM, SOME INFORMATION MAY BE OMITTED. This clinical summary was aggregated from multiple sources. Caution should be exercised in using it in the provision of clinical care. This summary normalizes information from multiple sources, and as a consequence, information in this document may materially change the coding, format and clinical context of patient data. In addition, data may be omitted in some cases. CLINICAL DECISIONS SHOULD BE BASED ON THE PRIMARY CLINICAL RECORDS. [facility] [employer] provides no warranty or guarantee of the accuracy or completeness of information in this document.
--- NOTE | 2025-01-18 08:00 | BI_ITS ---
EXAM: SCRN MAMM (CAD)W/FABRICIO BILAT DATE: 01/18/2025 CLINICAL HISTORY: F, Age 40 y/o , SCREENING FOR MALIGNANT NEOPLASM OF THE BREAST TECHNIQUE: Procedure Code: [id number] Modality: MG Procedure: SCRN MAMM (CAD)W/FABRICIO BILAT COMPARISON: None. FINDINGS: TISSUE DENSITY: The breasts are heterogeneously dense, which may obscure small masses. Bilateral Breast Mammographic Findings: There is a 15 mm focal density in the lateral, middle 3rd aspect of the left breast which is better appreciated on the fabricio images. Further workup is indicated. No suspicious masses, suspicious clustered microcalcifications, architectural distortion or secondary signs of malignancy is identified in the right breast. BI/SCRN MAMM (CAD)W/FABRICIO BILAT IMPRESSION: There is a 15 mm focal density in the lateral, middle 3rd aspect of the left br east which is better appreciated on the fabricio images. It appears to be located superiorly within the breast on the fabricio imag es. Further workup is indicated. The patient should return for a rolled CC view and an LM view of the left breas t as well as spot compression CC view of the left breast density. An ultrasound may also be needed. OVERALL FINAL ASSESSMENT BI-RADS 0: INCOMPLETE - NEED ADDITIONAL IMAGING EVALUATION. RECOMMENDATION: Additional Views obtained/call backs Additional Recommendation none A letter with findings and recommendations will be mailed to the patient. Reading Location: [id number]
== END | disposition home or self-care (01) ==
LOC: OPBI 07:40
PROVIDERS: PCP Family Medicine; Referring Provider Obstetrics & Gynecology; Visit Provider Obstetrics & Gynecology
DX: Z12.31 Encounter for screening mammogram for malignant neoplasm of breast (principal)
CPT/HCPCS: 77063; 77067

== ENCOUNTER → 2025-01-20 | Outpatient (CLI) | payer BC, SELFPAY ==
--- NOTE | 2025-01-20 13:57 | BI_ITS ---
EXAM: DIAG MAMM W/CAD, UNILAT 01/20/2025 CLINICAL HISTORY: F, Age 40 y/o , ABN MAMM. Abnormal screening mammogram. TECHNIQUE: Procedure Code: [id number] Modality: MG Procedure: DIAG MAMM W/CAD, UNILAT. Compression views as well as 90 degree lateral views of the left breast were obtained. COMPARISON: Prior exam(s) dated January 18, 2025.. FINDINGS: TISSUE DENSITY: The breasts are extremely dense, which lowers the sensitivity of mammography. Bilateral Breast Mammographic Findings: No significant masses, calcifications or other abnormalities are identified. No suspicious abnormality is seen. Sonographic correlation recommended. BI/DIAG MAMM W/CAD, UNILAT IMPRESSION: Unremarkable diagnostic mammogram. Targeted sonographic correlation recommende d. OVERALL FINAL ASSESSMENT BI-RADS 0: INCOMPLETE - NEED ADDITIONAL IMAGING EVALUATION. RECOMMENDATION: Ultrasound Recommended Additional Recommendation none A letter with findings and recommendations will be mailed to the patient. Reading Location: [place] [address]
--- NOTE | 2025-01-20 13:57 | US_ITS ---
PROCEDURE: BREAST LIMITED UNILATERAL 01/20/2025 REASON FOR EXAM: F, Age 40 y/o , ABN MAMM COMPARISON: Prior mammogram done earlier in the day.. TECHNIQUE: Procedure Code: USBRSTLIMIT Modality: US Procedure: BREAST LIMITED UNILATERAL FINDINGS: The upper lateral aspect of the left breast was examined with ultrasound. No sonographic abnormality is seen. US/Breast Limited Unilateral IMPRESSION: No sonographic abnormality is seen. BI-RADS 1: NEGATIVE RECOMMENDATION: Routine annual follow-up in 1 Year Reading Location: [place] [address]
--- OUTSIDE RECORDS SUMMARY | 2025-01-20 14:56 | XMS RPT_ITS | CCD ---
Author Organization [facility] Care Team Providers Care Psychology Assistant Name Role Phone THIAGO, FLACO L Unavailable Unavailable THIAGO, FLACO L Unavailable Unavailable ISAAK CARTER Unavailable Unavail able FARHAT SANON Unavailable Unavailable THIAGO, FLACO L Unavailable Unavailable THIAGO, FLACO L Unavailable Unavailable THIAGO, FLACO L Unavailable Unavailable THIAGO, FLACO L Unavailable Unavailable THIAGO, FLACO L Unavailable Unavailable Dr. Sammie Guy Primary Care Provider Dr. Sammie Guy Referring Provider MICHAEL Burdick Attending Provider MICHAEL Monique Attending Provider Dr. Sammie Guy Primary Care Provider Dr. Sammie Guy Referring Provider MICHAEL Monique Attending Provider Dr. Sammie Guy Primary Care Provider Dr. Sammie Guy Referring Provider [phone] MICHAEL Burdick Attending Provider Dr. Sammie Guy Referring Provider Dr. Maryjo Leigh Attending Provider [phone] Dr. Sammie Guy DO Primary Care Physician Delmy Dallas Attending Physician Delmy Dallas Referring Provider [phone] Sammie Guy Primary Care Unavailable Maryjo Leigh Attending Unavailabl e Maryjo Leigh Referring Unavailabl e Maryjo Leigh Attending Unavailabl e Malys, Sammie Primary Care Unavailable Maryjo Leigh Attending Unavailabl e Maryjo Leigh Referring Unavailabl e Malys, Sammie Primary Care Unavailable Brian BACK END DEVELOPER, Delmy Attending Unavailable Brian BACK END DEVELOPER, Delmy Referring Unavailable Assessment, Health Risk Attending Unavaila ble Assessment, Health Risk Referring Unavaila ble Malys, Sammie Primary Care Unavailable Malys, Sammie Primary Care Unavailable Maryjo Leigh Attending Unavailabl e Maryjo Leigh Referring Unavailabl e Medications Current Medications Medication Drug Class(es) Dates Sig (Normalized) Sig (Original) Quinby (Nk) (2 sources) Start: 04-06-2024 Quinby (Nk) A ctive April 06, 2024 1:00am Start: 03-18-2023 Quinby (Nk) A ctive March 18, 2023 12:00am [...] glass of water after each meal Vit,Jimy 19-Lbuf-Witre 1 TABLET tablet (1 source) Start: 06-21-2013 End: 11-05-2018 Vit,Jimy 24-Txcf-Mkksm 1 TABLET tablet Discontinued 1 {tbl} PO DAILY June 21, 2013 12:00am November 05, 2018 9:47am Vit,Smbm87-Knyo-Ctcvj (4 sources) Start: 06-21-2013 End: 11-05-2018 take 1 tablet by mouth once daily Vit,Oooy71-Oaqf-Ffcaf Discontinued 1 TABLET PO DAILY June 21, 2013 7:52pm November 05, 2018 9:47am Start: 06-21-2013 End: 11-05-2018 take 1 tablet by mouth once daily Vit,Axuh07-Sbdl-Ymvho Discontinued 1 TABLET PO DAILY June 20, 2013 11:00pm November 05, 2018 8:47am Start: 06-21-2013 End: 11-05-2018 take 1 tablet by mouth once daily Vit,Tgxs60-Kcje-Aqodd Discontinued 1 TABLET PO DAILY June 21, 2013 12:00am November 05, 2018 9:47am Problems Active Problems Problem Classification Problem Date Documented Da te Episodic/Chronic Other non-traumatic joint disorders (1 source) Ankle edema; Translations: [Effusion, right ankle] 12-03-2024 Episodic Other non-traumatic joint disorders (1 source) Effusion, right ankle; Translations: [Effusion, right ankle] Onset: 12-21-2024 Episodic Other screening for suspected conditions (not mental disorders or infectious disease) (6 sources) Other abnormal and inconclusive findings on diagnostic imaging of breast; Translations: [Encounter for screening mammogram for malignant neoplasm of breast] Onset: 04-06-2024 Episodic Unclassified (1 source) 36 weeks gestation [...] normal , third trimester] Onset: 10-19-2016 Episodic Results Test Name Value Interpretation Reference Range Facility SCRN MAMM (CAD)W/FABRICIO Anderson n 01-18-2025 SCRN MAMM (CAD)W/FABRICIO PERZE [facility] Imaging Services [address] [place] [address] SCRN MAMM (CAD)W/FABRICIO PEREZ MR#: [id number] Acct: [id number] Name: SERA KATHLEEN Rep #: [id number] : 1985 F 40 From: Kaylan Luz PCP: Dr. Sammie Guy DO Status: REG CLI Study: SCRN MAMM (CAD)W/FABRICIO BILAT Date of Exam: 12/31 Exam# [id number] Ordering Dr: Maryjo Leigh DO EXAM: SCRN MAMM (CAD)W/FABRICIO BILAT DATE: 01/18/2025 CLINICAL HISTORY: F, Age 40 y/o , SCREENING FOR MALIGNANT NEOPLASM OF THE BREAST TECHNIQUE: Procedure Code: [id number] Modality: MG Procedure: SCRN MAMM (CAD)W/FABRICIO BILAT COMPARISON: None. FINDINGS: TISSUE DENSITY: The breasts are heterogeneously dense, which may obscure small masses. Bilateral Breast Mammographic Findings: There is a 15 mm focal density in the lateral, middle 3rd aspect of the left breast which is better appreciated on the fabricio images. Further workup is indicated. No suspicious masses, suspicious clustered microcalcifications, architectural distortion or secondary signs of malignancy is identified in the right breast. BI/SCRN MAMM (CAD)W/FABRICIO BILAT IMPRESSION: There is a 15 mm focal density in the lateral, middle 3rd aspect of the left breast which is better appreciated on the fabricio images. It appears to be located superiorly within the breast on the fabricio images. Further workup is indicated. The patient should return for a rolled CC view and an LM view of the left breast as well as spot compression CC view of the left breast density. An ultrasound may also be needed. OVERALL FINAL ASSESSMENT BI-RADS 0: INCOMPLETE - NEED ADDITIONAL IMAGING EVALUATION. RECOMMENDATION: Additional Views obtained/call backs Additional Recommendation none A letter with findings and recommendations will be mailed to the patient. Reading Location: [id number] CC: Dr. Maryjo Leigh DO; Dr. Sammie Guy DO Iap Displays Analyst: Signed Normal [facility] Ankle min 3 Viewson 12-05-19 Ankle min 3 Views [facility] Imaging Services [address] [place], [place] [address] Ankle min 3 Views MR#: [id number] Acct: [id number] Name: SERA KATHLEEN Rep #: [id number] : 1985 F 39 From: Jeramy boyer MD PCP: Dr. Sammie Guy DO Status: REG CLI Study: Ankle min 3 Views Date of Exam: 12/04/24 Exam# [id number] Ordering Dr: Delmy Torres NP BACK END DEVELOPER- C PROCEDURE: ANKLE MIN 3 VIEWS 12/04/2024 REASON FOR EXAM: RIGHT ANKLE EDEMA TECHNIQUE: Procedure Code: RADANK Modality: DX Procedure: ANKLE MIN 3 VIEWS Laterality: Right ankle COMPARISON: None FINDINGS: Bones: No fracture seen. Joints: Normal alignment. Mortise appears intact. No effusion. Soft tissues: Soft tissue swelling. Other: RAD/Ankle min 3 Views IMPRESSION: Soft tissue swelling. No fracture seen. Reading Location: [place] [address] CC: BACK END DEVELOPER-C Delmy Torres; Dr. Sammie Guy DO [employer]ap Displays Analyst: Signed Normal [facility] CBC, Employeeon 05-06-2024 Absolute Lymph 1.58 X10 3/uL Normal 0.83-4.51 [facility] Comment on above: Performed By: #### L 400.0100, L500.2900, L100.0200 #### [facility] [address] [place], [address] Absolute Neut 2.6 X10 3/uL Normal 2.0-7.7 [facility] Comment on above: Performed By: #### L 400.0100, L500.2900, L100.0200 #### [facility] [address] [place], [address] Basophils/100 WBC (Bld) 0.7 % Normal 0-1 [facility] Comment on above: Performed By: #### L 400.0100, L500.2900, L100.0200 #### [facility] [address] [place], [address] Eosinophils/100 WBC (Bld) 0.7 % Normal 0-5 [facility] Comment on above: Performed By: #### L 400.0100, L500.2900, L100.0200 #### [facility] [address] [place], [address] Erythrocyte distribution width (RBC) [Ratio] 12.9 % Normal 11.6-14.6 [facility] Comment on above: Performed By: #### L 400.0100, L500.2900, L100.0200 #### [facility] [address] [place], [address] Hematocrit (Bld) [Volume fraction] 43.4 % Normal 37-47 [facility] Comment on above: Performed By: #### L 400.0100, L500.2900, L100.0200 #### [facility] [address] [place], [address] Hemoglobin (Bld) [Mass/Vol] 14.4 g/dL Normal 12.0-15.0 [facility] Comment on above: Performed By: #### L 400.0100, L500.2900, L100.0200 #### [facility] [address] [place], [address] Lymphocytes/100 WBC (Bld) 35.0 % Normal 19-41 [facility] Comment on above: Performed By: #### L 400.0100, L500.2900, L100.0200 #### [facility] [address] [place], [address] MCH (RBC) [Entitic mass] 30.1 pg Normal 27.0-32.0 [facility] Comment on above: Performed By: #### L 400.0100, L500.2900, L100.0200 #### [facility] [address] [place], [address] MCHC (RBC) [Mass/Vol] 33.2 g/dL Normal 32-36 [facility] Comment on above: Performed By: #### L 400.0100, L500.2900, L100.0200 #### [facility] [address] [place], [address] MCV (RBC) [Entitic vol] 90.6 fL Normal 81-99 [facility] Comment on above: Performed By: #### L 400.0100, L500.2900, L100.0200 #### [facility] [address] [place], [address] Monocytes/100 WBC (Bld) 7.1 % Normal 0-10 [facility] Comment on above: Performed By: #### L 400.0100, L500.2900, L100.0200 #### [facility] [address] [place], [address] Neutrophils/100 WBC (Bld) 56.5 % Normal 47-70 [facility] Comment on above: Performed By: #### L 400.0100, L500.2900, L100.0200 #### [facility] [address] [place], [address] NRBC # 0.00 10 3/uL Normal 0-5 [facility] Comment on above: Performed By: #### L 400.0100, L500.2900, L100.0200 #### [facility] [address] [place], [address] Nucleated RBC (Bld) [#/Vol] 0 10*3/uL Normal 0-5 [facility] Comment on above: Performed By: #### L 400.0100, L500.2900, L100.0200 #### [facility] [address] [place], [address] Platelet mean volume (Bld) [Entitic vol] 10.4 fL Normal 6.2-12.0 [facility] Comment on above: Performed By: #### L 400.0100, L500.2900, L100.0200 #### [facility] [address] [place], [address] Platelets (Bld) [#/Vol] 188 10*3/uL Normal 150-450 [facility] Comment on above: Performed By: #### L 400.0100, L500.2900, L100.0200 #### [facility] [address] [place], [address] RBC (Bld) [#/Vol] 4.79 10*6/uL Normal 4.2-5.4 [facility] Comment on above: Performed By: #### L 400.0100, L500.2900, L100.0200 #### [facility] [address] [place], [address] RDW SD 42.3 fl Normal 35.1-43.9 [facility] Comment on above: Performed By: #### L 400.0100, L500.2900, L100.0200 #### [facility] [address] [place], [address] WBC (Bld) [#/Vol] 4.5 10*3/uL Normal 4.4-11.0 [facility] Comment on above: Performed By: #### L 400.0100, L500.2900, L100.0200 #### [facility] [address] [place], [address] Employee Profile[employer] 5 Albumin [Mass/Vol] 3.8 g/dL Normal 3.2-5.0 [facility] Comment on above: Performed By: #### L 400.0100, L500.2900, L100.0200 #### [facility] [address] [place], [address] Albumin/Globulin [Mass ratio] 1.0 {ratio} Normal 0.9-2.4 [facility] Comment on above: Performed By: #### L 400.0100, L500.2900, L100.0200 #### [facility] [address] [place], [address] ALK P 49 U/L Normal 45-117 [facility] Comment on above: Performed By: #### L 400.0100, L500.2900, L100.0200 #### [facility] [address] [place], [address] ALT [Catalytic activity/Vol] 23 U/L Normal 13-56 [facility] Comment on above: Performed By: #### L 400.0100, L500.2900, L100.0200 #### [facility] [address] [place], [address] AST [Catalytic activity/Vol] 13 U/L Low 15-37 [facility] Comment on above: Performed By: #### L 400.0100, L500.2900, L100.0200 #### [facility] [address] [place], [address] Bilirubin [Mass/Vol] 0.50 mg/dL Normal 0.20-1.00 [facility] Comment on above: Result Comment: For patients on eltrombopag therapy, use of Dimension Arco TBIL is not recommended. Performed By: #### L 400.0100, L500.2900, L100.0200 #### [facility] [address] [place], [address] Bilirubin.direct [Mass/Vol] 0.11 mg/dL Normal 0.00-0.30 [facility] Comment on above: Performed By: #### L 400.0100, L500.2900, L100.0200 #### [facility] [address] [place], [address] BUN/CRE 18.7 RATIO Normal 10-20 [facility] Comment on above: Performed By: #### L 400.0100, L500.2900, L100.0200 #### [facility] [address] [place], [address] CA,Total 8.8 mg/dL Normal 8.5-10.1 [facility] Comment on above: Performed By: #### L 400.0100, L500.2900, L100.0200 #### [facility] [address] [place], [address] Chloride [Moles/Vol] 106 mmol/L Normal 98-107 [facility] Comment on above: Performed By: #### L 400.0100, L500.2900, L100.0200 #### [facility] [address] [place], [address] CHOL:HDL 2.40 Normal [facility] Comment on above: Performed By: #### L 400.0100, L500.2900, L100.0200 #### [facility] [address] [place], [address] Cholesterol [Mass/Vol] 188 mg/dL Normal 200 [facility] Comment on above: Result Comment: <200 mg/dL Desirable 200-240 mg/dL Borderline >240 mg/dL High Risk Performed By: #### L 400.0100, L500.2900, L100.0200 #### [facility] [address] [place], [address] Cholesterol in HDL [Mass/Vol] 78 mg/dL Normal [facility] Comment on above: Result Comment: The drugs N-Acetylcysteine and Metamizole may falsely depress this assay. Reference Range HDL <40 mg/dL Low HDL Cholesterol HDL >or= 60 mg/dL High HDL Cholesterol Performed By: #### L 400.0100, L500.2900, L100.0200 #### [facility] [address] [place], [address] Cholesterol in LDL [Mass/Vol] 101 mg/dL Normal 0-130 [facility] Comment on above: Performed By: #### L 400.0100, L500.2900, L100.0200 #### [facility] [address] [place], [address] Cholesterol in VLDL [Mass/Vol] 9 mg/dL Normal 5-40 [facility] Comment on above: Performed By: #### L 400.0100, L500.2900, L100.0200 #### [facility] [address] [place], [address] CO2 [Moles/Vol] 24.0 mmol/L Normal 21.0-32.0 [facility] Comment on above: Performed By: #### L 400.0100, L500.2900, L100.0200 #### [facility] [address] [place], [address] Creatinine [Mass/Vol] 0.86 mg/dL Normal 0.55-1.02 [facility] Comment on above: Result Comment: The validity of the calculated GFR GFRAA in patients over 70 years has not been determined. Clinical correlation is essential. Performed By: #### L 400.0100, L500.2900, L100.0200 #### [facility] [address] [place], [address] EST GFR - AA 95 mL/min Normal >60 [facility] Comment on above: Result Comment: Afri can Mauritanian GFR Calc Performed By: #### L 400.0100, L500.2900, L100.0200 #### [facility] [address] [place], [address] GAP 6 Normal 5-15 [facility] Comment on above: Performed By: #### L 400.0100, L500.2900, L100.0200 #### [facility] [address] [place], [address] GFR/1.73 sq M.predicted among non-blacks MDRD (S/P/Bld) [Vol rate/Area] 79 mL/min/{1.73_m2} Normal >60 [facility] Comment on above: Result Comment: Non- GFR Calc Performed By: #### L 400.0100, L500.2900, L100.0200 #### [facility] [address] [place], [address] Globulin (S) [Mass/Vol] 3.9 g/dL Normal 2.2-4.2 [facility] Comment on above: Performed By: #### L 400.0100, L500.2900, L100.0200 #### [facility] [address] [place], [address] Glucose [Mass/Vol] 87 mg/dL Normal 74-106 [facility] Comment on above: Performed By: #### L 400.0100, L500.2900, L100.0200 #### [facility] [address] [place], [address] LDH 161 U/L Normal 84-246 [facility] Comment on above: Performed By: #### L 400.0100, L500.2900, L100.0200 #### [facility] [address] [place], [address] Phosphate [Mass/Vol] 3.6 mg/dL Normal 2.5-4.9 [facility] Comment on above: Performed By: #### L 400.0100, L500.2900, L100.0200 #### [facility] [address] [place], [address] Potassium [Moles/Vol] 4.3 mmol/L Normal 3.5-5.1 [facility] Comment on above: Performed By: #### L 400.0100, L500.2900, L100.0200 #### [facility] [address] [place], [address] Sodium [Moles/Vol] 136 mmol/L Normal 136-145 [facility] Comment on above: Performed By: #### L 400.0100, L500.2900, L100.0200 #### [facility] [address] [place], [address] T PROT 7.7 g/dL Normal 6.4-8.2 [facility] Comment on above: Performed By: #### L 400.0100, L500.2900, L100.0200 #### [facility] [address] [place], [address] Triglyceride [Mass/Vol] 47 mg/dL Normal [facility] Comment on above: Result Comment: The drugs N-Acetylcysteine and Metamizole may falsely depress this assay. Serum Triglycerides Reference Interval Normal <150 mg/dL Borderline high 150 - 199 mg/dL High 200 - 499 mg/dL Very High > or = 500 mg/dL Performed By: #### L 400.0100, L500.2900, L100.0200 #### [facility] [address] [place], [address] Urea nitrogen [Mass/Vol] 16 mg/dL Normal 7-18 [facility] Comment on above: Performed By: #### L 400.0100, L500.2900, L100.0200 #### [facility] [address] [place], [address] URIC 2.9 mg/dL Normal 2.6-6.0 [facility] Comment on above: Result Comment: The drugs N-Acetylcysteine and Metamizole may falsely depress this assay. Performed By: #### L 400.0100, L500.2900, L100.0200 #### [facility] [address] [place], [address] Glucoseon 05-06-2024 Glucose [Mass/Vol] 84 mg/dL Normal 74-106 [facility] Comment on above: Performed By: #### L 506.1000, L501.0100, L501.9520, L500.4100 #### [facility] [address] [place], [address] Lipid Profileon 05-06-2024 Cholesterol [Mass/Vol] 189 mg/dL Normal 200 [facility] Comment on above: Result Comment: <200 mg/dL Desirable 200-240 mg/dL Borderline >240 mg/dL High Risk Performed By: #### L 506.1000, L501.0100, L501.9520, L500.4100 #### [facility] [address] [place], [address] Cholesterol in HDL [Mass/Vol] 78 mg/dL Normal [facility] Comment on above: Result Comment: The drugs N-Acetylcysteine and Metamizole may falsely depress this assay. Reference Range HDL <40 mg/dL Low HDL Cholesterol HDL >or= 60 mg/dL High HDL Cholesterol Performed By: #### L 506.1000, L501.0100, L501.9520, L500.4100 #### [facility] [address] [place], [address] Cholesterol in LDL [Mass/Vol] 101 mg/dL Normal 0-130 [facility] Comment on above: Performed By: #### L 506.1000, L501.0100, L501.9520, L500.4100 #### [facility] [address] [place], [address] Cholesterol in VLDL [Mass/Vol] 10 mg/dL Normal 5-40 [facility] Comment on above: Performed By: #### L 506.1000, L501.0100, L501.9520, L500.4100 #### [facility] [address] [place], [address] Triglyceride [Mass/Vol] 52 mg/dL Normal [facility] Comment on above: Result Comment: The drugs N-Acetylcysteine and Metamizole may falsely depress this assay. Serum Triglycerides Reference Interval Normal <150 mg/dL Borderline high 150 - 199 mg/dL High 200 - 499 mg/dL Very High > or = 500 mg/dL Performed By: #### L 506.1000, L501.0100, L501.9520, L500.4100 #### [facility] [address] [place], [address] Thyroid Stim Hormone (TSH)on 05-06-2024 TSH 1.870 uIU/mL Normal 0.358-3.740 [facility] Comment on above: Performed By: #### L 506.1000, L501.0100, L501.9520, L500.4100 #### [facility] [address] [place], [address] Urinalysis, Employeeon 05-06 BILIRUBIN URINE Negative Normal Negative [facility] Comment on above: Order Comment: Urine , Random Performed By: #### L 400.0100, L500.2900, L100.0200 #### [facility] [address] [place], [address] Clarity (U) Clear Normal Clear [facility] Comment on above: Order Comment: Urine , Random Performed By: #### L 400.0100, L500.2900, L100.0200 #### [facility] [address] [place], [address] Color (U) Straw Normal Yellow [facility] Comment on above: Order Comment: Urine , Random Performed By: #### L 400.0100, L500.2900, L100.0200 #### [facility] [address] [place], [address] GLUCOSE, UR Normal Normal Normal [facility] Comment on above: Order Comment: Urine , Random Performed By: #### L 400.0100, L500.2900, L100.0200 #### [facility] [address] [place], [address] KETONE UR Negative Normal Negative [facility] Comment on above: Order Comment: Urine , Random Performed By: #### L 400.0100, L500.2900, L100.0200 #### [facility] [address] [place], [address] LEUK ESTERASE Negative Normal Negative [facility] Comment on above: Order Comment: Urine , Random Performed By: #### L 400.0100, L500.2900, L100.0200 #### [facility] [address] [place], [address] Nitrite Ql (U) Negative Normal Negative [facility] Comment on above: Order Comment: Urine , Random Performed By: #### L 400.0100, L500.2900, L100.0200 #### [facility] [address] [place], [address] OCCULT BLOOD-UR Negative Normal Negative [facility] Comment on above: Order Comment: Urine , Random Performed By: #### L 400.0100, L500.2900, L100.0200 #### [facility] [address] [place], [address] pH UR 6.0 Normal 5.0 - 8.0 [facility] Comment on above: Order Comment: Urine , Random Performed By: #### L 400.0100, L500.2900, L100.0200 #### [facility] [address] [place], [address] PROT DIPSTX Negative Normal Negative [facility] Comment on above: Order Comment: Urine , Random Performed By: #### L 400.0100, L500.2900, L100.0200 #### [facility] [address] [place], [address] SP.GR. DIPSTX 1.010 Normal 1.002-1.030 [facility] Comment on above: Order Comment: Urine , Random Performed By: #### L 400.0100, L500.2900, L100.0200 #### [facility] [address] [place], [address] UROBILI Normal Normal Normal [facility] Comment on above: Order Comment: Urine , Random Performed By: #### L 400.0100, L500.2900, L100.0200 #### [facility] [address] [place], [address] Vitamin D,25 Hydroxyon 05-06 Vitamin D 25-OH 38.2 ng/mL Normal [facility] Comment on above: Result Comment: Donna min D 25(OH) Status Range Deficiency <20 ng/mL (50nmol/L) Insufficiency 20 - 30 ng/mL (50 - 75 nmol/L) Sufficiency 30 - 100 ng/mL (75 - 250 nmol/L) Toxicity >100 ng/mL (>250 nmol/L) Performed By: #### L 506.1000, L501.0100, L501.9520, L500.4100 #### [facility] [address] [place], [address] Fancy Sewer Office Visit Reporton 04-06-2024 Fancy [facility]er Office Visit Report [facility] [address], [address] [place] [address] OFFICE VISIT Date of Service: 04/06/24 MR#: [id number] Acct: [id number] Name: SERA KATHLEEN Rep #: [id number] : 1985 Provider: Dr. 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 Is patient in pain?: No Allergies No Known Allergies Allergy (Verified 04/06/24 08:03) Medications ???Medication ???Instructions ???Recorded ???Confirmed ???Type NK 04/06/24 04/06/24 History Post menopausal: No Patient : No : No [facility] Medical History Urinary tract infection with hematuria Urinary tract infection Kidney infection Surgical History [place] teeth extracted Family History Grandmother Rheumatoid arthritis [...] safe at home: Yes additional social history: [employer] Patient works at [employer] Oncology History Elective abortions Hx Para 4 Spontaneous abortions Hx # Term Pregnancies Ectopic pregnancies Hx # Pregnancies Multiple births # of living children Past Pregnancies Del. Date Name GA/Weeks Outcome Route Bth Weight Gen Labor Lgth Anesthesia Del Locatn Provider FOB Unknown 2008 Corby live - full term Unknown 2010 Jo live - full term Unknown 2013 Annette live - full term Unknown 2017 Valentín live - full term HPI Encounter [...] acute distress, well developed and well groomed HENDC Head: normal to inspection and normocephalic Ears: [...] Speculum E (more content not included)... Normal [facility] Culture, urineOrdered By: Zonia Liu on 09-21-2022 Bacteria identified Cx Nom (U) Culture exhibits no growth. [facility] Laboratory - Chemistry and C hemistry - challengeon 09-19-2022 HCG ( test) Ql (U) Negative [facility] Basophil percentageon 2021 Basophil percentage 25-50 SEEN /hpf 0-5 [facility] Work Phone: Bilirubin Test strip Ql (U)o n 12-20-2021 Bilirubin Ql (U) 1 mg/dL Negative [facility] Work Phone: Comment on above: COLOR OF URINE MAY A FFECT DIPSTICK RESULTS. Ketones Test strip Ql (U)on 12-20-2021 Ketones Ql (U) Negative Negative [facility] Work Phone: Laboratory - Chemistry and C hemistry - challengeon 12-20-2021 HCG ( test) Ql (U) Negative [facility] Work Phone: Bilirubin Ql (U) Negative [facility] Work Phone: Glucose Ql (U) Negative [facility] Work Phone: Ketones Ql (U) Trace (5) [facility] Work Phone: pH (U) 6.0 [pH] [facility] Work Phone: Specific gravity (U) [Rel density] 1.010 [facility] Work Phone: Urobilinogen (U) [Mass/Vol] Negative [facility] Work Phone: Laboratory - Hematology and Cell countson 12-20-2021 Hemoglobin Ql (U) Hemolyzed [facility] Work Phone: Laboratory - Specimen inform ationon 12-20-2021 Clarity (U) Cloudy [facility] Work Phone: Color (U) ORANGE [facility] Work Phone: Laboratory - Urinalysison Nitrite Ql (U) Negative [facility] Work Phone: Protein Ql (U) Negative [facility] Work Phone: Mucus LM Ql (Urine sed)on Mucus Ql (Urine sed) 0 SEEN /hpf [facility] Work Phone: Nitrite Test strip Ql (U)on 12-20-2021 Nitrite Ql (U) Positive Negative [facility] Work Phone: No Panel Informationon 12-20 Urine Leukocytes Positive [facility] Work Phone: Urine Non-Hemolyzed Blood Large [facility] Work Phone: Protein Test strip Ql (U)on 12-20-2021 Protein Ql (U) Negative Negative [facility] Work Phone: Squamous epithelial cells de tection in urine sediment by light microscopyon 12-20-2021 Epithelial cells.squamous LM Ql (Urine sed) 0-5 SEEN /hpf 5-10 [facility] Work Phone: Urine blood detectionon - RBC Ql (U) 250 /ul Negative [facility] Work Phone: RBC Ql (U) 25-50 SEEN /hpf 0-5 [facility] Work Phone: Urine clarityon 12-20-2021 Clarity (U) Sl. Cloudy Clear [facility] Work Phone: Urine color determinationon 12-20-2021 Color (U) Yellow Yellow [facility] Work Phone: Urine glucose detectionon Glucose Ql (U) Normal mg/dl Normal [facility] Work Phone: Urine leukocyte esterase det ection by dipstickon 12-20-2021 Leukocyte esterase Test strip Ql (U) 500 /ul Negative [facility] Work Phone: Urine pHon 12-20-2021 pH (U) 6.5 [pH] 5.0 - 8.0 [facility] Work Phone: Urine sediment bacteria coun t by microscopy (number/high power field)on 12-20-2021 Bacteria LM.HPF (Urine sed) [#/Area] 1 /[HPF] None Seen [facility] Work Phone: Urine specific gravity measu rementon 12-20-2021 Specific gravity (U) [Rel density] 1.005 1.002-1.030 [facility] Work Phone: Urobilinogen Auto test strip Ql (U)on 12-20-2021 Urobilinogen Ql (U) 4 mg/dl Normal [facility] Work Phone: Basophil percentageon 2021 Basophil percentage 0 SEEN /hpf [facility] Work Phone: Culture, urineon 06-29-2021 Bacteria identified Cx Nom (U) Positive [facility] Work Phone: Ketones Test strip Ql (U)on 06-29-2021 Ketones Ql (U) Negative Negative [facility] Work Phone: Laboratory - Chemistry and C hemistry - challengeon 06-29-2021 HCG ( test) Ql (U) Negative [facility] Work Phone: Glucose Ql (U) Negative [facility] Work Phone: Ketones Ql (U) Trace (5) [facility] Work Phone: pH (U) 7.5 [pH] [facility] Work Phone: Specific gravity (U) [Rel density] <1.005 [facility] Work Phone: Urobilinogen (U) [Mass/Vol] Negative [facility] Work Phone: Laboratory - Hematology and Cell countson 06-29-2021 Hemoglobin Ql (U) Negative [facility] Work Phone: Mucus LM Ql (Urine sed)on Mucus Ql (Urine sed) 0 SEEN /hpf [facility] Work Phone: Nitrite ur dipstickon 2021 Nitrite Ql (U) Negative [facility] Work Phone: No Panel Informationon 06-29 Urine Leukocytes Positive [facility] Work Phone: Urine Non-Hemolyzed Blood Negative [facility] Work Phone: Squamous epithelial cells de tection in urine sediment by light microscopyon 06-29-2021 Epithelial cells.squamous LM Ql (Urine sed) 0-5 SEEN /hpf [facility] Work Phone: Urine blood detectionon - RBC Ql (U) Negative Negative [facility] Work Phone: RBC Ql (U) 0 SEEN /hpf [facility] Work Phone: Urine clarityon 06-29-2021 Clarity (U) Clear [facility] Work Phone: Urine color determinationon 06-29-2021 Color (U) Yellow [facility] Work Phone: Urine glucose detectionon Glucose Ql (U) Normal mg/dl Normal [facility] Work Phone: Urine leukocyte esterase det ection by dipstickon 06-29-2021 Leukocyte esterase Test strip Ql (U) Negative Negative [facility] Work Phone: Urine pHon 06-29-2021 pH (U) 7.0 [pH] [facility] Work Phone: Urine protein assay by test strip, semi-quantitativeon 06-29-2021 Protein Ql (U) Negative [facility] Work Phone: Urine sediment bacteria coun t by microscopy (number/high power field)on 06-29-2021 Bacteria LM.HPF (Urine sed) [#/Area] 0 /[HPF] None Seen [facility] Work Phone: Urine specific gravity measu rementon 06-29-2021 Specific gravity (U) [Rel density] 1.010 [facility] Work Phone: Urine total bilirubin detect ion by test stripon 06-29-2021 Bilirubin Ql (U) Negative [facility] Work Phone: Urobilinogen Auto test strip Ql (U)on 06-29-2021 Urobilinogen Ql (U) Normal mg/dl Normal [facility] Work Phone: HOSPon 12-27-2016 HOSP Office Vi sit (WOOB) SERA KATHLEEN ([id number]) 1985 [facility] Time Provider Department12/27/16 10:30 AM FLACO DAS During your visit today, we recorded the following information about you: Blood pressure Weight 134/86 79.4 kgRedharmesh Das MD 12/27/2016 10:24 AM SignedPOSTPARTUM VISITEmmery [...] external genitalia normal, normal Bartholin's glands, urethra, Shepherd'sglands, no vulvar lesions, no cervical lesions, good vaginal support,physiologic discharge present, normal appearing perineal body and perianalregionBIMANUAL: uterus normal size, shape and consistency, no adnexal masses andnon-tenderNEURO: alert and oriented x3,exam grossly non-focalEXTREMITIES: normalASSESSMENT AND PLAN:31 year old status post with normal course.Contraception plan: vasectomyFollow up: RTC for annual exams and PRNRebKelly Corona Provider: FLACO DAS [[id number]]Allergies As of Date: 12/27/2016(No Known Allergies)Date Reviewed: [...] 12/27/2016 9:57 AM >> NAYELI HAWLEY MA Bethanie Dec 27, 2016 9:57 AM No longer taking OMEGA-3 FATTY ACIDS 500 MG CAPSULE >> Nayeli Hawley Ma 12/27/2016 9:57 AM >> NAYELI HAWLEY MA Dec 27, 2016 9:57 AM No longer [...] (around 12/27/2017).Follow-up and Disposition History RecordedEncounter Number: [id number] Status:Closed by FLACO DAS MD on 12/27/16 Normal [facility] PROGRESSon 12-27-2016 PROGRESS HNO ID: [id number] thor: Flaco DasService: (none)Author Type: PhysicianType: Progress [...] drainage.PELVIC: external genitalia normal, normal Bartholin's glands, urethra,Shepherd's glands, no vulvar lesions, no cervical lesions, good vaginalsupport, physiologic discharge present, normal appearing perineal body andperianal regionBIMANUAL: uterus normal size, shape and consistency, no adnexal masses andnon-tenderNEURO: alert and oriented x3,exam grossly non-focalEXTREMITIES: normalASSESSMENT AND PLAN:31 year old status post with normal course.Contraception plan: vasectomyFollow up: RTC for annual exams and Sam Das MD Normal [facility] 11-14-2016 HOSP Patient Update (WOOB) SERA KATHLEEN ([id number]) 1985 FDate Time Provider Department11/14/16 FLACO DAS During your visit today, we recorded the following information about you:Hunter Polo LPN 11/14/2016 3:48 PM SignedPt delivered via at [facility] on 11/14/[address] Das. See OB [...] Status:Closed by HUNTER POLO LPN on 11/14/16 Normal [facility] PROGRESSon 11-14-2016 PROGRESS HNO ID: [id number] Author: Hunter Polo LPN Service: (none) Author Type: (none) Type: Progress Notes Filed: 11/14/2016 3:48 PM Note Text: Pt delivered via at [facility] on 11/14/[address] Das. See OB Outcome note. Hunter Polo LPN Normal [facility] HOSPon 11-12-2016 HOSP Routine Off ice Visit (WOOB) SERA KATHLEEN ([id number]) 1985 [facility] Time Provider Department11/12/16 4:30 PM FLACO DAS During your visit today, we recorded the following information about you: Blood pressure Weight 118/66 86.6 kgTabatha [facility] 11/12/2016 4:18 PM SignedSEQUENTIAL SCREENINGSThe [facility] offers sequential screenings for women who are [...] testing. It will require anappointment with our landfill gas technician. This is not an ultrasound performedby [...] the above symptoms, contact our office at [phone] andask to speak with a nurse.After hours, you can call doctors registry at [phone] OR call [facility] at [phone] and ask to have the doctor audiovisual production specialist paged.If you consider this an emergency, dial 9-6-4 or go to your nearest emergencydepartment.NEED HELP? Are you dealing with a violent or abusive relationship? Are you avictim of rape or sexual assult? Call [facility] ([place]) 24 hourCrisis Hotline: 740.264.2399 or 845-634-1179. MANUALYour Guide to a Healthy manual is now on-line. [email or web address]/ HealthyPregnancyGuide to download your free copyReferring Provider: SELF [200]Allergies As of Date: 11/12/2016(No Known Allergies)Date Reviewed: 11/12/2016Reviewed by: Nayeli Hawley Ma - Fully AssessedReason for Visit: Care [86]Primary Visit Diagnosis:39 weeks gestation of [Z3A.39] Other Visit Diagnosis:Encounter for supervision of other normal [Z34.80]Order(s):URINE OB DIP B/O [[id number]] Order #: [id number] as of 11/12/2016 Sig: CALCIUM CARBONATE 200 [...] instructions from your clinician: SEQUENTIAL SCREENINGS The [facility] offers sequential screenings for women who are [...] It will require an appointment with our landfill gas technician. This is not an ultrasound performed [...] the above symptoms, contact our office at [phone] and ask to speak with a nurse. After hours, you can call doctors registry at [phone] OR call [facility] at [phone] and ask to have the doctor audiovisual production specialist paged. If you consider this an emergency, dial 91-9 or go to your nearest emergency department. NEED HELP? Are you dealing with a violent or abusive relationship? Are you a victim of rape or sexual assult? Call [facility] ([facility] 24 hour Crisis Hotline: 743.853.9414 or 489-103-7629. MANUAL Your Guide to a Healthy manual is now on-line. Visit [email or web address] hyPregnancyGuide to download your free copyEncounter Number: [id number] Status:Closed by FLACO DAS MD on 11/12/16 Normal [facility] 11-08-2016 [facility] Routine Off ice Visit (WOOB) SERA KATHLEEN ([id number]) 1985 FDate Time Provider Department11/08/16 4:30 PM FLACO DAS WOOB During your visit today, we recorded the following information about you: Blood pressure Weight 112/68 88 kgTabatha Marleen Md 11/08/2016 4:37 PM SignedSEQUENTIAL SCREENINGSThe [facility] offers sequential screenings for women who are [...] testing. It will require anappointment with our landfill gas technician. This is not an ultrasound performedby [...] the above symptoms, contact our office at [phone] andask to speak with a nurse.After hours, you can call y prime registry at [phone] OR call [facility] at [phone] and ask to have the doctor audiovisual production specialist paged.If you consider this an emergency, dial or go to your nearest emergencydepartment.NEED HELP? Are you dealing with a violent or abusive relationship? Are you avictim of rape or sexual assult? Call [facility] ([place]) 24 hourCrisis Hotline: 858.524.4305 or 163-502-0935. MANUALYour Guide to a Healthy manual is now on-line. [email or web address]/ HealthyPregnancyGuide to download your free copyReferring Provider: SELF [200]Allergies As of Date: 11/08/2016(No Known Allergies)Date Reviewed: 11/08/2016Reviewed by: Nayeli Hawley Ma - Fully AssessedReason for Visit: Care [86]Primary Visit Diagnosis:39 weeks gestation of [Z3A.39] Other Visit Diagnosis:Encounter for supervision of other normal [Z34.80]Order(s):URINE OB DIP B/O [[id number]] Order #: [id number] as of 11/08/2016 Sig: CALCIUM CARBONATE 200 [...] instructions from your clinician: SEQUENTIAL SCREENINGS The [facility] offers sequential screenings for women who are [...] It will require an appointment with our landfill gas technician. This is not an ultrasound performed [...] the above symptoms, contact our office at [phone] and ask to speak with a nurse. After hours, you can call doctors registry at [phone] OR call [facility] at [phone] and ask to have the doctor audiovisual production specialist paged. If you consider this an emergency, dial 1-3-4 or go to your nearest emergency department. NEED HELP? Are you dealing with a violent or abusive relationship? Are you a victim of rape or sexual assult? Call [facility] [place] ([facility] 24 hour Crisis Hotline: 284.617.9429 or 790-381-0787. MANUAL Your Guide to a Healthy manual is now on-line. Visit [email or web address] hyPregnancyGuide to download your free copyFollow Up: Will only call if abnormalDisposition: Return in about 1 week (around 11/15/2016) for routine OB check.Follow-up and Disposition History RecordedEncounter Number: [id number] Status:Closed by FLACO DAS MD on 11/08/16 Normal [facility] HOSPon 11-02-2016 HOSP Routine Off ice Visit (WOOB) SERA KATHLEEN ([id number]) 1985 FDate Time Provider Department11/02/16 10:40 AM FLACO DAS During your visit today, we recorded the following information about you: Blood pressure Weight 120/74 86.2 kgTabatha Marleen Md 11/02/2016 10:47 AM SignedSEQUENTIAL SCREENINGSThe [facility] offers sequential screenings for women who are [...] testing. It will require anappointment with our landfill gas technician. This is not an ultrasound performedby [...] the above symptoms, contact our office at [phone] andask to speak with a nurse.After hours, you can call doctors registry at [phone] OR call [facility] at [phone] and ask to have the doctor audiovisual production specialist paged.If you consider this an emergency, dial 9-1-1 or go to your nearest emergencydepartment.NEED HELP? Are you dealing with a violent or abusive relationship? Are you avictim of rape or sexual assult? Call [facility] ([place]) 24 hourCrisis Hotline: 425.451.9219 or 870-700-4298. MANUALYour Guide to a Healthy manual is now on-line. [email or web address]/ HealthyPregnancyGuide to download your free copyReferring Provider: SELF [200]Allergies As of Date: 11/02/2016(No Known Allergies)Date Reviewed: 11/02/2016Reviewed by: Nayeli Hawley Ma - Fully AssessedReason for Visit: Care [86]Primary Visit Diagnosis:38 weeks gestation of [Z3A.38] Other Visit Diagnosis:Encounter for supervision of other normal [Z34.80]Order(s):URINE OB DIP B/O [[id number]] Order #: [id number] as of 11/02/2016 Sig: CALCIUM CARBONATE 200 [...] instructions from your clinician: SEQUENTIAL SCREENINGS The [facility] offers sequential screenings for women who are [...] It will require an appointment with our landfill gas technician. This is not an ultrasound performed [...] the above symptoms, contact our office at [phone] and ask to speak with a nurse. After hours, you can call doctors registry at [phone] OR call [facility] at [phone] and ask to have the doctor audiovisual production specialist paged. If you consider this an emergency, dial 3-1-7 or go to your nearest emergency department. NEED HELP? Are you dealing with a violent or abusive relationship? Are you a victim of rape or sexual assult? Call [facility] ([place]) 24 hour Crisis Hotline: 986.465.3368 or 339-490-8134. MANUAL Your Guide to a Healthy manual is now on-line. Visit [email or web address]/Healt hyPregnancyGuide to download your free copyFollow Up: Will only call if abnormalDisposition: Return in about 1 week (around 11/09/2016) for routine OB check.Follow-up and Disposition History RecordedEncounter Number: [id number] Status:Closed by FLACO DAS MD on 11/02/16 Normal [facility] HOSP 10-26-2016 [facility] Routine Off ice Visit (WOOB) SERA KATHLEEN ([id number]) 1985 [facility] Time Provider Department10/26/16 10:20 AM FARHAT SANON During your visit today, we recorded the following information about you: Blood pressure Weight 114/62 85.3 kgTabatha Marleen Md 10/26/2016 10:19 AM SignedSEQUENTIAL SCREENINGSThe [facility] offers [facility] screenings for women who are [...] testing. It will require anappointment with our landfill gas technician. This is not an ultrasound performedby [...] the above symptoms, contact our office at [phone] andask to speak with a nurse.After hours, you can call doctors registry at [phone] OR call [facility] at [phone] and ask to have the doctor audiovisual production specialist paged.If you consider this an emergency, dial or go to your nearest emergencydepartment.NEED HELP? Are you dealing with a violent or abusive relationship? Are you avictim of rape or sexual assult? Call [facility] ([place]) 24 hourCrisis Hotline: 580.233.6654 or 395-368-1691. MANUALYour Guide to a Healthy manual is now on-line. [email or web address]/ HealthyPregnancyGuide to download your free copyReferring Provider: SELF [200]Allergies As of Date: 10/26/2016(No Known Allergies)Date Reviewed: 10/26/2016Reviewed by: Nayeli Hawley Ma - Fully AssessedReason for Visit: Care [86]Primary Visit Diagnosis:37 weeks gestation of [Z3A.37] Other Visit Diagnoses:Encounter for supervision of other normal [Z34.80] control counseling [Z30.09]Order(s):URINE OB DIP B/O [[id number]] Order #: [id number] as of 10/26/2016 Sig: CALCIUM CARBONATE 200 [...] instructions from your clinician: SEQUENTIAL SCREENINGS The [facility] offers sequential screenings for women who are [...] It will require an appointment with our landfill gas technician. This is not an ultrasound performed [...] the above symptoms, contact our office at [phone] and ask to speak with a nurse. After hours, you can call doctors registry at [phone] OR call [facility] at [phone] and ask to have the doctor audiovisual production specialist paged. If you consider this an emergency, dial 91-0 or go to your nearest emergency department. NEED HELP? Are you dealing with a violent or abusive relationship? Are you a victim of rape or sexual assult? Call [facility] ([place]) 24 hour Crisis Hotline: 666.796.5021 or 976-596-5162. MANUAL Your Guide to a Healthy manual is now on-line. Visit [email or web address] hyPregnancyGuide to download your free copyFollow Up: Will only call if abnormalDisposition: Return in about 1 week (around 11/02/2016) for routine OB check.Follow-up and Disposition History RecordedEncounter Number: [id number] Status:Closed by FARHAT SANON MD on 10/26/16 Normal [facility] GROUP B STREP PCRon 10-20-19 GROUP B STREP PCR Negative Normal [facility] Comment on above: Performed By: #### G BP ####[facility], [place] [id number] HOSPon 10-19-2016 [facility] Routine Off ice Visit (WOOB) SERA KATHLEEN ([id number]) 1985 [facility] Time Provider Department10/19/16 10:00 AM ISAAK CARTER WOOB During your visit today, we recorded the following information about you: Blood pressure Weight 122/68 86.2 kgZoë Louis SUPERVISOR SHEET MANUFACTURING 10/19/2016 10:11 AM SignedSEQUENTIAL SCREENINGSThe [facility] offers sequential screenings for women who are [...] testing. It will require anappointment with our landfill gas technician. This is not an ultrasound performedby [...] the above symptoms, contact our office at [phone] andask to speak with a nurse.After hours, you can call doctors registry at [phone] OR call [facility] at [phone] and ask to have the doctor audiovisual production specialist paged.If you consider this an emergency, dial 9--1 or go to your nearest emergencydepartment.NEED HELP? Are you dealing with a violent or abusive relationship? Are you avictim of rape or sexual assult? Call [facility] ([place]) 24 hourCrisis Hotline: 213.738.4425 or 844-673-3694. MANUALYour Guide to a Healthy manual is now on-line. [email or web address]/ HealthyPregnancyGuide to download your free copyReferring Provider: SELF [200]Allergies As of Date: 10/19/2016(No Known Allergies)Date Reviewed: 10/19/2016Reviewed by: Zoë Louis LPN - Fully AssessedReason for Visit: Care [86]Primary Visit Diagnosis:Encounter for supervision of other normal , third trimester [Z34.83] Other Visit Diagnosis:36 weeks gestation of [Z3A.36]Order(s):URINE OB DIP B/O [[id number]] Order #: [id number] STREPTOCOCCUS B PCR [[id number]] Order #: [id number] as of 10/19/2016 Sig: CALCIUM CARBONATE 200 [...] instructions from your clinician: SEQUENTIAL SCREENINGS The [facility] offers sequential screenings for women who are [...] It will require an appointment with our landfill gas technician. This is not an ultrasound performed [...] the above symptoms, contact our office at [phone] and ask to speak with a nurse. After hours, you can call doctors registry at [phone] OR call [facility] at [phone] and ask to have the doctor audiovisual production specialist paged. If you consider this an emergency, dial 8-1-0 or go to your nearest emergency department. NEED HELP? Are you dealing with a violent or abusive relationship? Are you a victim of rape or sexual assult? Call [facility] ([facility] 24 hour Crisis Hotline: 905.151.1291 or 448-823-8329. MANUAL Your Guide to a Healthy manual is now on-line. Visit [email or web address]/Healt hyPregnancyGuide to download your free copyDisposition: Return in about 1 week (around 10/26/2016).Follow-up and Disposition History RecordedEncounter Number: [id number] Status:Closed by ISAAK JENNINGS MD on 10/19/16 Normal [facility] HOSP 10-03-2016 [facility] Routine Off ice Visit (WOOB) [facility][id number][facility] 1985 [facility] Provider Department10/03/16 3:40 PM FLACO DAS During your visit today, we recorded the following information about you: Blood pressure Weight 128/76 87.1 kgTabatha Marleen Bravo 10/03/2016 3:47 PM SignedSEQUENTIAL SCREENINGSThe [facility] offers sequential screenings for women who are [...] testing. It will require anappointment with our landfill gas technician. This is not an ultrasound performedby [...] the above symptoms, contact our office at [phone] andask to speak with a nurse.After hours, you can call doctors registry at [phone] OR call [facility] at [phone] and ask to have the doctor audiovisual production specialist paged.If you consider this an emergency, dial 9 or go to your nearest emergencydepartment.NEED HELP? Are you dealing with a violent or abusive relationship? Are you avictim of rape or sexual assult? Call [facility] ([place]) 24 hourCrisis Hotline: 813.908.9088 or 984-570-1806. MANUALYour Guide to a Healthy manual is now on-line. [email or web address]/ HealthyPregnancyGuide to download your free copyReferring Provider: FLACO DAS [[id number]]Allergies As of Date: 10/03/2016(No Known Allergies)Date Reviewed: 10/03/2016Reviewed by: Nayeli Hawley Ma - Fully AssessedReason for Visit: Care [86]Primary Visit Diagnosis:34 weeks gestation of [Z3A.34] Other Visit Diagnosis:Encounter for supervision of other normal [Z34.80]Order(s):URINE OB DIP B/O [[id number]] Order #: [id number] as of 10/03/2016 Sig: CALCIUM CARBONATE 200 [...] instructions from your clinician: SEQUENTIAL SCREENINGS The [facility] offers sequential screenings for women who are [...] It will require an appointment with our landfill gas technician. This is not an ultrasound performed [...] the above symptoms, contact our office at [phone] and ask to speak with a nurse. After hours, you can call doctors registry at [phone] OR call [facility] at [phone] and ask to have the doctor audiovisual production specialist paged. If you consider this an emergency, dial 3-7-2 or go to your nearest emergency department. NEED HELP? Are you dealing with a violent or abusive relationship? Are you a victim of rape or sexual assult? Call [facility] ([place]) 24 hour Crisis Hotline: 678.925.1157 or 365-506-7330. MANUAL Your Guide to a Healthy manual is now on-line. Visit [email or web address]/Healt hyPregnancyGuide to download your free copyDisposition: Return in about 2 weeks (around 10/17/2016) for routine OB check.Follow-up and Disposition History RecordedEncounter Number: [id number] Status:Closed by FLACO DAS MD on 10/03/16 Normal [facility] Culture, urine Bacteria identified Cx Nom (U) Presumptive E. coli [facility] Work Phone: Vital Signs Date Time Vital Sign Value Performing Clinician Abigail hancock 03-18-2023 08:33-0500 Body height 165.[address] Sammie Guy Work Phone: [facility] 03-18-2023 08:32-0500 Body mass index (BMI) [Ratio] 26.2 kg/m2 Dr. Sammie Guy Work Phone: [facility] 03-18-2023 08:32-0500 Body weight 71.[address] Sammie Guy Work Phone: [facility] 03-18-2023 08:32-0500 Diastolic blood pressure 82 mm[Hg] Dr. Sammie Guy Work Phone: [facility] 03-18-2023 08:32-0500 Systolic blood pressure 140 mm[Hg] Dr. Sammie Guy Work Phone: [facility] 09-19-2022 09:28-0400 Body height 165.[address] Sammie Guy Work Phone: [facility] 09-19-2022 09:28-0400 Body mass index (BMI) [Ratio] 26.4 kg/m2 Dr. Sammie Guy Work Phone: [facility] 09-19-2022 09:28-0400 Body temperature 98 [degF] Dr. Sammie uGy Work Phone: [facility] 09-19-2022 09:28-0400 Body weight 72.[address] Sammie Guy Work Phone: [facility] 09-19-2022 09:28-0400 Diastolic blood pressure 80 mm[Hg] Dr. Sammie Guy Work Phone: [facility] 09-19-2022 09:28-0400 Heart rate 76 /min Dr. Sammie Guy Work Phone: [facility] 09-19-2022 09:28-0400 Respiratory rate 16 /min Dr. Sammie Guy Work Phone: [facility] 09-19-2022 09:28-0400 SaO2% (BldA) [Mass fraction] 96 % Dr. Sammie Guy Work Phone: [facility] 09-19-2022 09:28-0400 Systolic blood pressure 110 mm[Hg] Dr. Smamie Guy Work Phone: [facility] 12-20-2021 08:34-0400 Body temperature 99.6 [degF] Dr. Sammie Guy Work Phone: [facility] Work Phone: 12-20-2021 08:34-0400 Diastolic blood pressure 66 mm[Hg] Dr. Sammie Guy Work Phone: [facility] Work Phone: 12-20-2021 08:34-0400 Heart rate 119 /min Dr. Sammie Guy Work Phone: [facility] Work Phone: 12-20-2021 08:34-0400 Respiratory rate 14 /min Dr. Sammie Guy Work Phone: [facility] Work Phone: 12-20-2021 08:34-0400 SaO2% (BldA) [Mass fraction] 99 % Dr. Sammie Guy Work Phone: [facility] Work Phone: 12-20-2021 08:34-0400 Systolic blood pressure 118 mm[Hg] Dr. Sammie Guy Work Phone: [facility] Work Phone: 06-29-2021 17:08-0400 Body temperature 98.1 [degF] Dr. Sammie Guy Work Phone: [facility] Work Phone: 06-29-2021 17:08-0400 Diastolic blood pressure 72 mm[Hg] Dr. Sammie Guy Work Phone: [facility] Work Phone: 06-29-2021 17:08-0400 Heart rate 76 /min Dr. Sammie Guy Work Phone: [facility] Work Phone: 06-29-2021 17:08-0400 Respiratory rate 14 /min Dr. Sammie Guy Work Phone: [facility] Work Phone: 06-29-2021 17:08-0400 Systolic blood pressure 132 mm[Hg] Dr. Sammie Guy Work Phone: [facility] Work Phone: 05-01-2021 15:34-0500 Body height 165.[address] Sammie Guy Work Phone: [facility] Work Phone: 05-01-2021 15:34-0500 Body mass index (BMI) [Ratio] 27.3 kg/m2 Dr. Sammie Guy Work Phone: [facility] Work Phone: 05-01-2021 15:34-0500 Body temperature 97.8 [degF] Dr. Sammie Guy Work Phone: [facility] Work Phone: 05-01-2021 15:34-0500 Body weight 74.[address] Sammie Guy Work Phone: [facility] Work Phone: 05-01-2021 15:34-0500 Diastolic blood pressure 84 mm[Hg] Dr. Sammie Guy Work Phone: [facility] Work Phone: 05-01-2021 15:34-0500 Heart rate 76 /min Dr. Sammie Guy Work Phone: [facility] Work Phone: 05-01-2021 15:34-0500 Respiratory rate 16 /min Dr. Sammie Guy Work Phone: [facility] Work Phone: 05-01-2021 15:34-0500 SaO2% (BldA) [Mass fraction] 100 % Dr. Sammie Guy Work Phone: [facility] Work Phone: 05-01-2021 15:34-0500 Systolic blood pressure 118 mm[Hg] Dr. Sammie Guy Work Phone: [facility] Work Phone: Encounters Encounter Date Encounter Type Care Provider Facility [facility]: [facility] Start: 01-18-20[facility] Start: 12-04-2024 End: 12-04-[address] Sammie Guy DO Work Phone: [facility] [place] Start: 12-04-2024 End: 12-04-2024 Patient encounter procedure Delmy DAVIS -[facility] [place] Work Phone: Start: 12-04-2024 End: 12-04-2024 ambulatory Sammie Guy Facility:[facility] Start: 05-06-2024 ambulatory Health Risk Assessment Facility:[facility] Start: 05-06-2024 End: 05-06-2024 ambulatory [facility] Facility:[facility] Start: 04-06-2024 Encounter for gynecological examination (general) (routine) without abnormal findings Maryjo Leigh [facility] Start: 04-06-2024 End: 04-06-2024 ambulatory Maryjo Leigh Facility:[facility] Start: 03-18-2023 End: 03-18-[address] Sammie Guy Work Phone: [facility] Work Phone: Start: 03-18-2023 End: 03-18-[address] Sammie Guy Work Phone: [facility]-Laboratory, Specimen Work Phone: Start: 03-18-2023 End: 03-18-[address] Sammie Guy Work Phone: [facility] Work Phone: Start: 09-19-2022 End: 09-19-[address] Sammie Gyu Work Phone: [facility] Work Phone: Start: 09-19-2022 End: 09-19-[address] Sammie Guy Work Phone: [facility], Specimen Start: 09-19-2022 End: 09-19-[address] Sammie Guy Work Phone: [facility] Start: 12-20-2021 End: 12-20-[address] Sammie Guy Work Phone: [facility] Work Phone: Start: 12-20-2021 End: 12-20-[address] Sammie Guy Work Phone: [facility], Specimen Start: 12-20-2021 End: 12-20-[address] Sammie Guy Work Phone: [facility] Start: 06-29-2021 End: 06-29-[address] [facility] Start: 06-29-2021 End: 06-29-[address] Sammie Guy Work Phone: [facility] Start: 05-01-2021 End: 05-01-[address] Sammie Guy Work Phone: [facility] Start: 12-27-2016 End: 12-28-2016 Ambulatory FLACO DAS [facility] Start: 11-12-2016 End: 11-13-2016 Ambulatory FLACO DAS [facility] Start: 11-08-2016 End: 11-09-2016 Ambulatory FLACO DAS [facility] Start: 11-02-2016 End: 11-05-2016 Ambulatory FLACO DAS [facility] Start: 10-26-2016 End: 10-29-2016 Ambulatory FARHAT SANON [facility] Start: 10-19-2016 End: 10-22-2016 Ambulatory ISAAK JENNINGS [facility] Start: 10-03-2016 End: 10-04-2016 Ambulatory FLACO DAS [facility] Procedures Date Procedure Procedure Detail Performing Clinician Start: 12-04-2024 Radex ankle complete minimum [address] Sammie Guy DO Work Phone: Start: 06-29-[address] Sammie Guy Work Phone: Urine culture Dr. Sammie Guy Work Phone: Urine culture Dr. Sammie Guy Work Phone: Plan of Treatment Date Care Activity Detail Author Start: 03-18-2023 Liquid based cervica l cytology screening [facility] Path report.final Dx Spec [facility] Immunizations Immunization Date Immunization Notes Care Provider Fa cility 02-04-2020 influenza, injectabl e, quadrivalent, preservative free Dr. Sammie Guy Work Phone: [facility] 02-04-2020 influenza, seasonal, injectable Dr. Sammie Guy Work Phone: [facility] 02-24-2019 influenza, injectabl e, quadrivalent, preservative free Dr. Sammie Guy Work Phone: [facility] 02-24-2019 influenza, seasonal, injectable Dr. Sammie Guy Work Phone: [facility] 01-13-2018 influenza, injectabl e, quadrivalent, preservative free Dr. Sammie Guy Work Phone: [facility] 01-13-2018 influenza, seasonal, injectable Dr. Sammie Guy Work Phone: [facility] 02-07-2017 influenza, injectabl e, quadrivalent, preservative free Dr. Sammie Guy Work Phone: [facility] 02-07-2017 influenza, seasonal, injectable Dr. Sammie Guy Work Phone: [facility] 09-05-2016 tetanus toxoid, redu alonzo diphtheria toxoid, and acellular pertussis vaccine, adsorbed Dr. Sammie Guy Work Phone: [facility] 12-29-2015 influenza, injectabl e, quadrivalent, preservative free Dr. Sammie Guy Work Phone: [facility] 12-29-2015 influenza, seasonal, injectable Dr. Sammie Guy Work Phone: [facility] 01-05-2015 influenza, injectabl e, quadrivalent, preservative free Dr. Sammie Guy Work Phone: [facility] 01-05-2015 influenza, seasonal, injectable Dr. Sammie Guy Work Phone: [facility] 03-31-2014 tetanus toxoid, redu alonzo diphtheria toxoid, and acellular pertussis vaccine, adsorbed Dr. Sammie Guy Work Phone: [facility] Payers Date Payer Category Payer Self-pay [id number] 2023 Unknown [id number] 2016 Unknown [id number] Unknown [id number] 2.16.8 [id number] Unknown [id number] 2.16.8 [id number] Unknown [id number] 2.16.8 [id number] Unknown [id number] 2.16.8 [id number] Unknown [id number] 2.16.8 [id number] Unknown [id number] 2.16.8 [id number] Social History Date Type Detail Facility Start: 06-29-2021 End: 03-18-2023 Tobacco smoking status NHIS Unknown if ever smoked [facility] Start: 11-14-2016 None [facility] Start: 1985 Sex Assigned At Female [facility] Start: 04-06-2024 Tobacco smoking stat us NHIS Never smoked tobacco (finding) [facility] Sex Female [facility] Radiology Diagnostic study note 12-04-2024 Note Date & Type Note Facility 12-04-2024 Radiology Diagnostic study note [facility] Imaging Services [address], [place] [address] Ankle min 3 Views MR#: [id number] Acct: [id number] Name: SERA KATHLEEN Rep #: [id number] : 1985 F 39 From: Donnie Pimentel MD PCP: Dr. Sammie Guy DO Status: REG CLI Study:Ankle min 3 Views Date of Exam: Exam# [id number] Ordering Dr: Delmy Torres NP BACK END DEVELOPER-C PROCEDURE: ANKLE MIN 3 VIEWS 12/04/2024 REASON FOR EXAM: RIGHT ANKLE EDEMA TECHNIQUE: Procedure Code: RADANK Modality: DX Procedure: ANKLE MIN 3 VIEWS Laterality: Right ankle COMPARISON: None FINDINGS: Bones: No fracture seen. Joints: Normal alignment. Mortise appears intact. No effusion. Soft tissues: Soft tissue swelling. Other: RAD/Ankle min 3 Views IMPRESSION: Soft tissue swelling. No fracture seen. [facility] CC: SUSAN Torres; Dr. Sammie Guy DO ~ [employer]ap Displays Analyst: Signed [facility] Evaluation note Note Date & Type Note Facility Evaluation note Diagnosis Onset Date Cystitis acute Urinary tract infection acut e [facility] Work Phone: Evaluation note Note Date & Type Note Facility Evaluation note Diagnosis Onset Date Urinary tract infection acut e Urinary tract infection with hematuria acute [facility] Work Phone: Evaluation note Note Date & Type Note Facility Evaluation note Diagnosis Onset Date Cystitis acute [facility] Work Phone: Evaluation note Note Date & Type Note Facility Evaluation note Diagnosis Onset Date Encounter for routine gyneco logical examination noneactive [facility] Work Phone: Evaluation note Note Date & Type Note Facility Evaluation note No assessment information availa ble [facility] Work Phone: Reason for referral (narrative) Note Date & Type Note Facility Reason for referral (narrative) No reason for referral information available [facility] Work Phone: Summary Purpose Family History No Family History Records Found Relationship Condition Age at Onset Recorded Date/T kyleigh grandmother Rheumatoid arthritis Unknown Malignant neoplasm of breast Unknown Cardiac disease Unknown grandfather Malignant neoplasm Unknown Advance Directives No Advanced Directives Records Found Advance Directive Response Recorded Date/ Time Living Will No November 14 7:54am Power of Iap Displays Analyst No November 14 017 7:54am Advance Directive Response Recorded Date/ Time Living Will No November 14 7 6:54am Power of Iap Displays Analyst No November 14 017 6:54am Chief Complaint and Reason for Visit Chief Complaint Urinary tract infect ion Urinary tract infection Reason for Visit Cystitis Urinary tract infection Chief Complaint Urinary tract infect ion Reason for Visit Urinary tract infect ion Urinary tract infection with hematuria Chief Complaint CONCERN FOR UTI Urgency of urination Reason for Visit Cystitis Chief Complaint Annual (WELDING [employer]OD [employer]) Reason for Visit Encounter for routin e gynecological examination Chief Complaint Admit Date Right ankle edema December 04, 2024 11:35am Additional Source Comments INFORMATION SOURCE (unrecogn ized section and content) DATE CREATED AUTHOR 09/25/2017 [facility] DATE CREATED AUTHOR AUTHOR'S RAMIRO SOSA 01/20/2025 [facility] Goals (unrecognized section and content) Goals [...] Sammie Guy DO Primary Care Provider Active Steven RODRIGUEZ PA Attending Provider, Referring Provi luciano Active Team [...] Inactive Member Role/Relationship Status Dates Dr. Sammie Guy DO Primary care physician Active Start: December 04, 2024 End: December 04, 2024 Delmy Torres BACK END DEVELOPER, BACK END DEVELOPER-C Attending physician Active Start: December 04, 2024 End: December 04, 2024 Delmy Torres NP, BACK END DEVELOPER-C Referring Provider Active Start: December 04, 2024 [...] BE BASED ON THE PRIMARY CLINICAL RECORDS. [facility] provides no warranty or guarantee of the accuracy or completeness of information in this document.
== END | disposition home or self-care (01) ==
PROVIDERS: PCP Family Medicine; Referring Provider Obstetrics & Gynecology; Visit Provider Obstetrics & Gynecology
DX: R92.342 Mammographic extreme density, left breast (principal)
CPT/HCPCS: 76642; 77061; 77065; G0279